=== PATIENT | male | born 1965 | race Caucasian/White ===

== ENCOUNTER 2017-04-08 08:57 | Emergency (ER) | payer MEDICAID ==
[~2017-04-08] VITALS: Ht 182.9 cm; Wt 147.4 kg
[~2017-04-08 08:57] MED LIST: AMLODIPINE10 MG PO; CARVEDILOL6.25 MG PO; GABAPENTIN100 M1 PO; LISINOPRIL40 MG PO; LORTAB 10/3251 TAB PO; ROPINIROLE HYDRO1 MG PO
--- NOTE | 2017-04-08 09:18 | Emergency Room Report ---
History of Present Illness Time Seen by MD [email or web address] Presenting Problem in Triage Pt arrived:Walked Presenting Problem:PT WAS CLEANING A BATHROOM WITH AN ACID SUBSTANCE TO GET IT CLEAN WHEN HE INCIDENTALLY INHALED THE FUMES; HE HAS A HX OF COPD AND SMOKES 1+ PPD AND FEELS SOA. 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 N Clinical Suspician of Infection? N Mental Status: 1 - Regular (Normal Baseline) Sepsis Risk:Low Sepsis Risk Have you (or family members/close friends) recently traveled outside the [place]? N If Yes, where/when: Have you had exposure to infectious disease within the past month? TB? Other? Specify: Patient inhaled muriatic acid at work while cleaning bathroom. He had some initial SOB but none now. No vomiting. Stable and in NAD on arrival. He is a smoker with hx COPD, not steroid dependent, uses CPAP at night for sleep apnea. ALLERGIES Coded Allergies: No Known Allergies (04/08/17) Home Medications Reported Medications Gabapentin (Gabapentin 100MG) 100 MG PO TID Carvedilol (Carvedilol 6.25MG) 6.25 MG PO BID Lisinopril (Lisinopril 40MG) 40 MG PO DAILY Amlodipine Besylate (Amlodipine) 10 MG PO DAILY ROPINIROLE HCL (Ropinirole 1MG) 2 MG PO QHS HYDROCODONE/ACETAMINOPHEN (Lortab 10-325 MG Tablet) 1 TAB PO QID History Medical History General CAD? No Angina: No CA: No Hypertension? Yes Hyperlipidemia? No CHF? No DVT? Yes PE? No COPD? No Asthma? No Anemia? No GERD? No Gastric ulcers? No GI Bleed? No Hernia? No Thyroid Problems? No Hypothyroidism? No CVA? No Seizures? No Diabetes? No Renal Insuffiency? No End Stage Renal Disease? No UTI? No Stones? No BPH? No GB Disease: No Nephritic Syndrome? No Asplenia? No Hepatitis? No Arthritis? Yes Migraines? No Cataracts? No Glaucoma? No MRSA? No HIV? No TB? No Anxiety? No Depression? No Cancer? No More? Yes Additional hx: RHEUMATIOD ARTHRITIS Immunization Hx Ped.Immunizations UTD Yes DT/Tetanus 1-4 Years Ago Surgical Hx Previous Surgery?Y LEFT KNEE X2 HERNIA REPAIR X2 Social History Smoking Hx Smoker: Current Every Day Smoker Tobacco: Yes Type Cigarettes Packs/day < 1 Pack Alcohol Alcohol: No Review of Systems All Other Systems Reviewed and Negative Physical Exam Vital Signs Vital Signs Date Time Temp Pulse Resp B/P Pulse O2 O2 Flow FiO2 Ox Delivery Rate 04/08 09 98.4 72 18 169/107 96 General Appearance normal appearance, WD/WN, no apparent distress Eye Exam - bilateral eye normal exam, bilateral eye PERRL, bilateral eye EOMI Ear, Nose, Throat hearing grossly normal (lips pink; no watts to nares) Neck normal inspection, non-tender, supple, full range of motion Respiratory Status Yes: trachea midline, chest symmetrical, non tender chest. No: respiratory distress, tender on palpation, use of accessory muscles, pain on inspiration, pain on expiration, productive cough, non productive cough. Lung Sounds bilateral: normal breath sounds, lungs clear. Cardiovascular normal exam, regular rate/rhythm, no peripheral edema, no gallop, no JVD, no murmur, no rub, normal peripheral pulses Gastrointestinal normal bowel sounds, normal exam, non tender, soft, no organomegaly, no pulsatile mass, no guarding, no rebound Extremities non-tender, normal range of motion, no pedal edema Strength 5 Upper Ext (L), 5 Upper Ext (R), 5 Lower Ext (L), 5 Lower Ext (R) Neurologic alert, normal exam, no motor/sensory deficits, oriented x 3 Glascow Coma Scale Glascow Coma Scale Response Value EYE response: 4 Spontaneously 4 MOTOR response: 6 OBEYS 6 VERBAL response: 5 Oriented & Converses 5 Total 15 Skin intact, normal color, warm/dry Medical Decision Making LABS/Meds/Orders Pt receiving controlled substance in ED? No Results/Orders Orders Procedure Date/time Status CHEST(2 VIEWS-NOT PORTABLE) 04/08 09 Active Consult MD Physician Consult Time Called 0935 Reason Other (Poison control consultation) Progress ED Progress Notes Date 04/08/17 Time 0943 Comment Per poison control, ok to discharge now as stable one hour s/p exposure. Pt exam unchanged at d/c. Departure Departure Time of Disposition 0944 Disposition DC Home or Self Care(routine) Clinical Impression Primary Impression: Exposure to chemical inhalation Condition STABLE Referrals JENNIFER BEAN (Family) Patient Instructions DI for Inhalation Injury Additional Instructions See Dr. Bean for follow up if needed; wear mask at work; take Ventolin scheduled at home every six hours while awake over the next 12-24 hours. Discharge Counseling Counseled pt/family regarding diagnosis, test results, medications/RX, home care, follow up needs ED Critical Care Critical Care No at 0946
--- OUTSIDE RECORDS SUMMARY | 2017-04-08 09:34 | External Medical Summary Rpt ---
Author Author JAELYN [facility] Organization [facility] Address Unknown Phone Unavailable Care Team Providers Care Sports Trainer Name Role Phone DENNIS BEAN PCP [phone] Encounter JAELYN RAYA [id number] Date(s): 06/25/16 - 06/25/16 [facility] [address] [place] [address]- [phone] Discharge Disposition: OP Self Care or Home Attending Physician: CAMILLE ENGLISH MD-ORT Admitting Physician: CAMILLE ENGLISH MD-ORT Referring Physician: CAMILLE ENGLISH MD-ORSelma Reason for Visit PAIN IN RIGHT KNEE Vital Signs No data available for this section Problem List Condition Effective Status Health Informant Dates Status Left leg Active DVT(Confirme d) Hypertension Active (Confirmed) Allergies, Adverse Reactions, Alerts No Known Allergies Medications No data available for this section Results No data available for this section Immunizations No data available for this section Procedures No data available for this section Social History Social History Response Type Smoking Status Current every day smoker Assessment and Plan No data available for this section Hospital Discharge Instructions No data available for this section
--- OUTSIDE RECORDS SUMMARY | 2017-04-08 09:34 | External Medical Summary Rpt ---
Author Author [facility] Organization [facility] Address Unknown Phone Unavailable Care Team Providers Care Microfabrication Engineer Manager Name Role Phone VIKAS DENNIS PCP [phone] Encounter [facility] Date(s): 01/06/17 - 01/07/17 [facility] [address] [place] [address]- Discharge Disposition: OP Self Care or Home Attending Physician: IRON MANCINI MD-CAR Admitting Physician: IRON MANCINI MD-CAR Referring Physician: BRYANT LICEA MD-INT Reason for Visit ABNORMAL RESULT OF OTHER CARDIOVASCULAR FUNCTION STUDY Vital Signs Most recent 1 2 3 to oldest [Reference Range]: Temperature Temporal artery Source scanning (01/07/17 9:32 AM) Temperature Fahrenheit Mode (01/07/17 9:32 AM) Temperature, 97.7 Deg F Fahrenheit (01/07/17 9:32 AM) [96.8-99.7 Deg F] Clinical 36.5 Deg C Temperature, (01/07/17 9:32 AM) C Peripheral 63 bpm Pulse Rate (01/07/17 9:32 AM) [60-100 bpm] Heart Rate 70 bpm 64 bpm 62 bpm Monitored (01/07/17 1:30 PM) (01/07/17 1:15 PM) (01/07/17 1:00 PM) [60-100 bpm] Respiratory 16 Breaths/Min 16 Breaths/Min 6 Breaths/Min Rate [14-20 (01/07/17 1:30 PM) (01/07/17 1:15 PM) *LOW* Breaths/Min] (01/07/17 1:00 PM) Blood 126/74 mmHg 126/74 mmHg 141/83 mmHg Pressure (01/07/17 1:30 PM) (01/07/17 1:15 PM) *HI* [90-140/60-9 (01/07/17 1:00 PM) 0 mmHg] Mean 91 mmHg 91 mmHg 102 mmHg Arterial (01/07/17 1:30 PM) (01/07/17 1:15 PM) (01/07/17 1:00 PM) Pressure (MAP) Mean 92 92 107 Arterial (01/07/17 1:30 PM) (01/07/17 1:15 PM) (01/07/17 1:00 PM) Pressure (MAP)-BMDI Oxygen 96 % 97 % 94 % Saturation (01/07/17 1:30 PM) (01/07/17 1:15 PM) (01/07/17 1:00 PM) [94-100 %] Oxygen Room air Therapy Mode (01/07/17 9:32 AM) Height Stated Source (01/07/17 9:32 AM) Height Entry [place] Format (01/07/17 9:32 AM) Height/Lengt 6 ft h, [place] (01/07/17 9:32 AM) (ft) Height/Lengt 0 Inch h [place] (01/07/17 9:32 AM) CLINICALHEIG 182.88 cm HT (01/07/17 9:32 AM) Weight Standing scale Source (01/07/17 9:32 AM) Weight Entry [place] Format (01/07/17 9:32 AM) Weight 318 lb [place] lb (01/07/17 9:32 AM) CLINICALWEIG 144.55 kg HT (01/07/17 9:32 AM) Body Surface 2.6 m2 Area (BSA) (01/07/17 9:32 AM) Body Mass 43.2 kg/m2 Index *>HHI* [19.0-24.0 (01/07/17 9:32 AM) kg/m2] [place] Body 77 kg Weight (01/07/17 9:32 AM) Problem List Condition Effective Status Health Informant Dates Status Anxiety(Conf Active patient irmed) Left leg Active DVT(Confirme d) HTN(Confirme Active d) Hypertension Active (Confirmed) Apnea, Active patient sleep(Confir med) Restless Active patient leg(Confirme d) Allergies, Adverse Reactions, Alerts Substance Reaction Severity Status sulfa drugs Active Medications acetaminophen-hydrocodone ([place] 10 mg-325 mg oral tablet)1 Tab, Oral, Three Times A Day, Refills: 0 albuterol (Ventolin HFA 90 mcg/inh inhalation aerosol)2 Puff, Inhalation, Four Times A Day, As Needed, as needed for wheezing, Refills: 0 amLODIPine 5 mg, Oral, At Bedtime, Refills: 0 carvedilol 25 mg, Oral, Two Times A Day, Refills: 0 citalopram 40 mg, Oral, Every Day, Refills: 0 gabapentin 300 mg, Oral, Three Times A Day, Refills: 0 lisinopril (lisinopril 40 mg oral tablet) 1 Tab, Oral, Two Times A Day, Refills: 0 montelukast 10 mg, Oral, Every Day, Refills: 0 rOPINIRole Oral, 0.5 mg at noon and 4mg at bedtme, Refills: 0 Results GENERAL CHEMISTRY Most recent 1 to oldest [Reference Range]: eGFR 77 mL/min/1.73m2 [>=60 (01/07/17 9:25 AM) mL/min/1.73m 2] eGFR 63 mL/min/1.73m2 NonAfrican (01/07/17 9:25 AM) [>=60 mL/min/1.73m 2] Sodium POC 140 mmol/L [138-146 (01/07/17 9:25 AM) mmol/L] Potassium 4.1 mmol/L POC [3.5-4.9 (01/07/17 9:25 AM) mmol/L] Chloride POC 100 mmol/L [98-109 (01/07/17 9:25 AM) mmol/L] CO2 POC 28.0 mmol/L [24.0-29.0 (01/07/17 9:25 AM) mmol/L] Anion Gap 16.0 mmol/L POC (01/07/17 9:25 AM) [10.0-20.0 mmol/L] Glucose POC 103 mg/dL [70-105 (01/07/17 9:25 AM) mg/dL] BUN POC 26 mg/dL [8-26 mg/dL] (01/07/17 9:25 AM) Creatinine 1.2 mg/dL POC [0.6-1.3 (01/07/17 9:25 AM) mg/dL] Ca Ioniz POC 1.24 mmol/L [1.12-1.32 (01/07/17 9:25 AM) mmol/L] HEMATOLOGY Most recent 1 to oldest [Reference Range]: Platelet 108 K/uL Count *LOW* [163-369 (01/07/17 9:18 AM) K/uL] Hematocrit 42.0 % POC (01/07/17 9:25 AM) [38.0-51.0 %] Hemoglobin 14.3 Gram/dL POC (01/07/17 9:25 AM) [12.0-17.0 Gram/dL] Immunizations No data available for this section Procedures Procedure Date Related Body Site Diagnosis cardiac cathterization without pci Social History Social History Response Type Smoking Status Current every day smoker; Smoking Frequency Within Last 30 Days Five or more cigarettes per day; Years of Tobacco Use 35; Packs/Tins Daily .5 Assessment and Plan No data available for this section Hospital Discharge Instructions Patient EducationAngiogram, Care After Conscious Sedation, Adult, Care After Heart-Healthy Eating Plan, [id number] Radial Site Care Wound Infection, [id number]
--- OUTSIDE RECORDS SUMMARY | 2017-04-08 09:34 | External Medical Summary Rpt ---
Author Author [facility] Organization [facility] Address Unknown Phone Unavailable Care Team Providers Care Panel Wirer Name Role Phone VIKAS DENNIS PCP [phone] Encounter [facility] Date(s): 01/06/17 - 01/07/17 [facility] [address] [place] [address]- Discharge Disposition: OP Self Care or Home [...] Stated Source (01/07/17 9:32 AM) Height Entry [place] Format (01/07/17 9:32 AM) Height/Lengt 6 ft h, [place] (01/07/17 9:32 AM) (ft) Height/Lengt 0 Inch h [place] (01/07/17 9:32 AM) CLINICALHEIG 182.88 cm HT (01/07/17 9:32 AM) Weight Standing scale Source (01/07/17 9:32 AM) Weight Entry [place] Format (01/07/17 9:32 AM) Weight [address] [place] lb (01/07/17 9:32 AM) CLINICALWEIG 144.55 kg HT (01/07/17 9:32 AM) Body Surface 2.6 m2 Area (BSA) (01/07/17 9:32 AM) Body Mass 43.2 kg/m2 Index *>HHI* [19.0-24.0 (01/07/17 9:32 AM) kg/m2] [place] Body 77 kg Weight (01/07/17 9:32 AM) Problem List Condition Effective Status Health Informant Dates Status Anxiety(Conf Active patient irmed) Left leg Active DVT(Confirme d) HTN(Confirme Active d) Hypertension Active (Confirmed) Apnea, Active patient sleep(Confir med) Restless Active patient leg(Confirme d) Allergies, Adverse Reactions, Alerts Substance Reaction Severity Status sulfa drugs Active Medications acetaminophen-hydrocodone ([place] 10 mg-325 mg oral tablet)1 Tab, Oral, [...] Sedation, Adult, Care After Heart-Healthy Eating Plan, [id number] Radial Site Care Wound Infection, [id number]
--- OUTSIDE RECORDS SUMMARY | 2017-04-08 09:34 | External Medical Summary Rpt ---
Author Author JAELYN [facility] Organization [facility] Address Unknown Phone Unavailable Care Team Providers Care Cardiac Care Unit Nurse Name Role Phone DENNIS BEAN PCP [phone] Encounter JAELYN RAYA [id number] Date(s): 06/25/16 - 06/25/16 [facility] [address] [place] [address]- [phone] Discharge Disposition: OP Self Care or Home [...]
--- OUTSIDE RECORDS SUMMARY | 2017-04-08 09:38 | External Medical Summary Rpt | CCD ---
Author Author , CHANDA Organization CHANDA Address Unknown Phone [email or web address] Providers Care Painter Plate Name Role Phone ANIVAL CARDONA MD, PSC, Unavailable Unavailable ANIVAL CARDONA MD, PSC [facility] Unavailable Unavailable [facility]PITAL, [facility], Unavailable Unavailable [facility] LICEA, LICEA Unavailable Unavailable [facility] Unavailable Unavailable MEDICAL G, [facility] [employer], Unavailable Unavailable LLC, [employer] [employer] MARTHA LICEA MD Unavailable Unavailable CONSULTING SRV, MARTHA LICEA MD CONSULTING SRV [facility] Unavailable Unavailable [facility], [facility]ANS [facility] Unavailable Unavailable EMERGENCY PHYS, [facility], Unavailable Unavailable [facility] [employer] [facility] Unavailable Unavailable [facility], [facility] [facility] ADDIS, ADDIS Unavailable Unavailable Purpose Continuity of Care Document - 04-17-2015 through 2016 Problems Code Diagnosis DOS Provider Status R06.02 SHORTNESS 01-07-2017 OF BREATH R07.9 CHEST PAIN, 01-07-2017 UNSPECIFIED I10 ESSENTIAL 01-07-2017 [facility] HYPERTENSIO MEDICAL G N I209 ANGINA 01-07-2017 [facility] UNSPECIFIED MEDICAL G J449 CHRONIC 01-07-2017 [facility] OBSTRUCTIVE HEALTH PULMONARY MEDICAL G DISEASE UNS R0789 OTHER CHEST 01-07-2017 [facility] MEDICAL G R9439 ABNORMAL 01-07-2017 [facility] CARDIOVASCU MEDICAL LR FUNCTION STUDY Z720 TOBACCO USE 01-07-2017 [facility] MEDICAL G R0602 SHORTNESS 2017 [facility] [place] OF BREATH RADIOLOGY R079 CHEST PAIN 2017 [facility] [place] UNSPECIFIED RADIOLOGY G4733 OBSTRUCTIVE 12-30-2016 MARTHA LICEA SLEEP APNEA ADULT CONSULTING PEDIATRIC SRV I158 OTHER 12-30-2016 MARTHA ROSARIO MD HYPERTENSIO CONSULTING N SRV [id number] ASHD TRIBAL 12-30-2016 MARTHA LICEA COR ART MD W/OTH FORMS CONSULTING ANGINA SRV [place] Z8249 FAMILY HX 12-30-2016 MARTHA LICEA ISCHEMIC MD HRT DZ OTH CONSULTING DZ CIRC SRV SYSTEM R07.2 PRECORDIAL 12-29-2016 PAIN R002 PALPITATION 12-28-2016 MARTHA LICEA S CONSULTING SRV R072 PRECORDIAL 12-28-2016 MARTHA LICEA PAIN MD CONSULTING SRV F17.210 NICOTINE 11-29-2016 DEPENDENCE, CIGARETTES, UNCOMPLICAT ED I10 ESSENTIAL 11-29-2016 (PRIMARY) HYPERTENSIO N S61.240A PUNCTURE 11-29-2016 WOUND WITH FOREIGN BODY OF RIGHT INDEX FINGER WITHOUT DAMAGE TO NAIL, INITIAL ENCOUNTER X58.XXXA EXPOSURE TO 11-29-2016 OTHER SPECIFIED FACTORS, INITIAL ENCOUNTER Y93.89 ACTIVITY, 11-29-2016 OTHER SPECIFIED Z88.2 ALLERGY 11-29-2016 STATUS TO SULFONAMIDE S STATUS [id number] PUNCTURE 11-28-2016 [facility] W/FB RT N EMERGENCY INDEX PHYS FINGER NO DAMGE NAIL INIT [id number] OTH 11-28-2016 [facility] FB/OBJECT N EMERGENCY ENTERING PHYS THRU SKIN INITIAL ENC Y51397 PAIN IN 10-21-2016 [facility] LEFT KNEE [facility] R251 TREMOR 10-21-2016 [facility] UNSPECIFIED [facility] R79.89 OTHER 10-11-2016 SPECIFIED ABNORMAL FINDINGS OF BLOOD CHEMISTRY R91.8 OTHER 10-11-2016 NONSPECIFIC ABNORMAL FINDING OF LUNG FIELD Z86.718 PERSONAL 10-11-2016 HISTORY OF OTHER VENOUS THROMBOSIS AND EMBOLISM R918 OTHER 10-08-2016 [facility] [place] NONSPECIFIC [facility] ABNORMAL FINDING OF LUNG FIELD M1711 UNILATERAL 09-10-2016 [facility] OSTEOARTHRI MEDICAL G TIS RIGHT KNEE M1712 UNILATERAL 09-10-2016 [facility] OSTEOARTHRI MEDICAL G TIS LEFT KNEE R05 COUGH 08-18-2016 [facility] J209 ACUTE 07-21-2016 [facility] BRONCHITIS FAMILY UNSPECIFIED [facility] [id number] PAIN IN 06-25-2016 [facility] RIGHT KNEE EAST R937 ABN FIND ON 06-25-2016 [facility] DX IMAG EAST OTH PART MUSCULOSKEL ETAL SYS H5213 MYOPIA 06-22-2016 [facility] C44231 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 [facility] ASTIGMATISM [facility] OF RIGHT EYE [facility] H524 PRESBYOPIA 06-22-2016 [facility] M53784 PAIN IN 06-21-2016 MARTHA LICEA RIGHT LEG CONSULTING SRV R32121 PAIN IN 06-21-2016 MARTHA VINAYAK LEFT LEG CONSULTING SRV G8929 OTHER 06-18-2016 [facility] PAIN R600 LOCALIZED 06-18-2016 [facility] EDEMA [facility] G2581 RESTLESS 05-20-2016 [place] LEGS [facility]ILY SYNDROME [facility] J0190 ACUTE 04-27-2016 [place] SINUSITIS FAMILY UNSPECIFIED [facility] R911 SOLITARY 04-12-2016 [facility] PULMONARY [facility] D489 NEOPLASM OF 03-05-2016 [place] UNCERTAIN FAMILY BEHAVIOR PHYSICIANS UNSPECIFIED [facility] M179 OSTEOARTHRI 01-13-2016 GAVIN LIMA OF KNEE MD, PSC UNSPECIFIED R221 LOCALIZED 12-05-2015 [place] SWELLING FAMILY MASS AND PHYSICIANS LUMP NECK [facility] H34665 ACUTE EMBO 10-20-2015 [facility] THROMB [facility] UNS LOW EXTREM G479 SLEEP 10-01-2015 [facility] DISORDER [facility] M2550 PAIN IN 09-12-2015 [facility] Z0000 ENCOUNTER 09-12-2015 [facility] ADULT [facility] W/O ABNORMAL FIND Z7901 PRISON 09-12-2015 [facility] CURRENT USE [facility] ANTICOAGULA NTS S41353 PHLEBITIS & 09-11-2015 [facility]ILY THROMBOPHLE [facility]ANS B OTH DEEP PLLC VES UNS EXT K219 GASTRO-ESOP 09-11-2015 [place] H REFLUX FAMILY DISEASE [facility] WITHOUT [facility] ESOPHAGITIS Z98338 PAIN IN 09-11-2015 [facility] UNSPECIFIED FAMILY ANKLE [facility] L55766 PAIN IN 08-29-2015 [facility] [place] LEFT ANKLE RADIOLOGY R279 UNSPECIFIED 08-20-2015 MARTHA LUNA OF COORDINATIO CONSULTING N SRV L918 OTHER 08-07-2015 [facility] HYPERTROPHI FAMILY C DISORDERS [facility] SKIN U14931 ACUTE EMBO 08-01-2015 [place] THROMB UNS FAMILY DEEP VEINS [facility]YSICIANS LT LOWER PLLC EXTREM Z5181 ENCOUNTER 08-01-2015 [facility]ITAL DRUG LEVEL MONITORING M1990 UNSPECIFIED 07-11-2015 [facility]PITAL TIS UNSPECIFIED SITE M7122 SYNOVIAL 07-11-2015 [place] [facility] SPACE DIEHL LEFT KNEE [id number] COMPLEX 07-11-2015 [place] [facility] MED [facility] CURR LT KNEE INIT ENC [id number] OTH TEAR 07-11-2015 [facility] [place] [facility] CURR INJ LT KNEE INIT ENC J9809 OTHER 05-14-2015 [place] DISEASES [facility] X98812 EFFUSION 04-17-2015 [facility] RIGHT KNEE N EMERGENCY PHYS W83310 EFFUSION 04-17-2015 [facility] LEFT KNEE N EMERGENCY PHYS Allergies, Adverse Reactions, Alerts Clinical Alert Notifications Alert Asthma: no influenza vaccine in the last 365 days Medications Na ND Rx Da Fi Fi Am Da Di Ph RX Ph St me C No te ll ll ou ys ag ar # ys at rm s nt no ma ic us Or Da si cy ia de te s n re d SY 00 10 12 10 30 00 RI Ac MB 18 -2 -0 .1 00 TE ti IC 60 5- 1- 99 00 ve OR 37 20 20 79 AI T 02 17 17 28 D 16 0 64 PH 0- AR 4. M 5 #3 MC 91 G 4 IN [facility] LE R RO 43 10 11 30 30 00 RI Ac PI 54 -1 -1 .0 00 TE ti NI 70 8- 0- 00 00 ve RO 26 20 20 78 AI LE 91 17 17 30 D 0 63 PH HC AR L M 0. #3 5 91 MG 4 TA BL ET CI 13 10 11 30 30 00 RI Ac TA 66 -0 -1 .0 00 TE ti LO 80 9- 0- 00 00 ve HI 01 20 20 77 AI AM 10 17 17 96 D 1 82 PH HB AR R M 40 #3 91 MG 4 TA BL ET HY 00 10 11 [address] 40 -1 -1 0. 00 TE ti OC 60 3- 0- 00 00 ve OD 12 20 20 0 80 AI ON 50 17 17 02 D -A 1 23 PH CE AR TA M MS #3 NO 91 PH 4 N 10 -3 25 LI 00 10 11 60 30 00 RI Ac SI 18 -0 -1 .0 00 TE ti NO 50 3- 0- 00 00 ve HI 64 20 20 78 AI IL 00 17 17 73 D 1 73 PH 40 AR M MG #3 91 TA 4 BL ET CA 68 10 11 60 30 00 RI Ac RV 38 -1 -1 .0 00 TE ti ED 20 0- 0- 00 00 ve IL 09 20 20 78 AI OL 40 17 17 20 D 1 49 PH 12 AR .5 M #3 MG 91 4 TA BL ET MO 65 10 11 30 30 00 RI Ac NT 86 -1 -1 .0 00 TE ti EL 20 0- 0- 00 00 ve UK 57 20 20 79 AI 49 17 17 92 D T 0 92 PH SO AR D M 10 #3 91 MG 4 TA BL ET AM 67 10 11 30 30 00 RI Ac LO 87 -1 -1 .0 00 TE ti DI 70 0- 0- 00 00 ve PI 19 20 20 79 AI NE 99 17 17 92 D 0 91 PH BE AR SY M LA #3 TE 91 4 10 MG TA B GA 69 10 11 90 30 00 RI Ac BA 09 -1 -1 .0 00 TE ti PE 70 1- 0- 00 00 ve NT 81 20 20 79 AI IN 41 17 17 95 D 2 83 PH 30 AR 0 M MG #3 91 CA 4 PS UL E VE 00 09 10 18 30 00 RI Ac NT 17 -1 -1 .0 00 TE ti OL 30 8- 3- 00 00 ve IN 68 20 20 79 AI 22 17 17 53 D HF 0 51 PH A AR 90 M #3 MC 91 G 4 IN [facility] LE R RO 43 09 10 30 30 00 RI Ac PI 54 -1 -1 .0 00 TE ti NI 70 8- 3- 00 00 ve RO 26 20 20 78 AI LE 91 17 17 30 D 0 63 PH HC AR L M 0. #3 5 91 MG 4 TA BL ET GA 69 09 10 90 30 00 RI Ac BA 09 -1 -0 .0 00 TE ti PE 70 3- 6- 00 00 ve NT 81 20 20 78 AI IN 41 17 17 16 D 2 49 PH 30 AR 0 M MG #3 91 CA 4 PS UL E SY 00 09 10 10 30 00 RI Ac MB 18 -1 -0 .1 00 TE ti IC 60 6- 6- 99 00 ve OR 37 20 20 79 AI T 02 17 17 28 D 16 0 64 PH 0- AR 4. M 5 #3 MC 91 G 4 IN [facility] LE R CA 68 09 10 60 30 00 RI Ac RV 38 -1 -0 .0 00 TE ti ED 20 3- 6- 00 00 ve IL 09 20 20 78 AI OL 40 17 17 20 D 1 49 PH 12 AR .5 M #3 MG 91 4 TA BL ET HY 00 09 10 [address] 40 -1 -0 0. 00 TE ti OC 60 5- 6- 00 00 ve OD 12 20 20 0 79 AI ON 50 17 17 50 D -A 1 62 PH CE AR TA M MS #3 NO 91 PH 4 N 10 -3 25 MO 65 09 10 30 30 00 RI Ac NT 86 -1 -0 .0 00 TE ti EL 20 0- 6- 00 00 ve UK 57 20 20 78 AI 49 17 17 37 D T 0 39 PH SO AR D M 10 #3 91 MG 4 TA BL ET AM 00 09 10 30 30 00 RI Ac LO 37 -1 -0 .0 00 TE ti DI 85 0- 6- 00 00 ve PI 21 20 20 78 AI NE 07 17 17 30 D 7 65 PH BE AR SY M LA #3 TE 91 4 10 MG TA B LI 00 09 09 60 30 00 RI Ac SI 18 -0 -2 .0 00 TE ti NO 50 4- 9- 00 00 ve HI 64 20 20 78 AI IL 00 17 17 73 D 1 73 PH 40 AR M MG #3 91 TA 4 BL ET RO 43 08 09 30 30 00 RI Ac PI 54 -2 -1 .0 00 TE ti NI 70 0- 5- 00 00 ve RO 26 20 20 78 AI LE 91 17 17 30 D 0 63 PH HC AR L M 0. #3 5 91 MG 4 TA BL ET FL 58 08 09 0. 1 00 RI Ac UA 16 -2 -1 50 00 TE ti RI 00 2- 5- 0 00 ve X 90 20 20 79 AI QU 75 17 17 06 D AD 2 27 PH AR 20 M 17 #3 -2 91 01 4 8 SY RI NG E HI 00 08 09 0. 1 00 RI Ac EV 00 -2 -1 50 00 TE ti NA 51 2- 5- 0 00 ve R 97 20 20 79 AI 13 10 17 17 06 D 2 30 PH SY AR RI M NG #3 E 91 4 VE 00 08 09 18 30 00 RI Ac NT 17 -1 -0 .0 00 TE ti OL 30 4- 8- 00 00 ve IN 68 20 20 78 AI 22 17 17 90 D HF 0 73 PH A AR 90 M #3 MC 91 G 4 IN [facility] LE R HY 00 08 09 [address] 40 -1 -0 0. 00 TE ti OC 60 7- 8- 00 00 ve OD 12 20 20 0 78 AI ON 50 17 17 98 D -A 1 71 PH CE AR TA M MS #3 NO 91 PH 4 N 10 -3 25 CA 68 08 09 60 30 00 RI Ac RV 38 -1 -0 .0 00 TE ti ED 20 6- 8- 00 00 ve IL 09 20 20 78 AI OL 40 17 17 03 D 1 66 PH 12 AR .5 M #3 MG 91 4 TA BL ET GA 69 08 09 90 30 00 RI Ac BA 09 -1 -0 .0 00 TE ti PE 70 2- 1- 00 00 ve NT 81 20 20 78 AI IN 41 17 17 16 D 2 49 PH 30 AR 0 M MG #3 91 CA 4 PS UL E CI 13 08 09 30 30 00 RI Ac TA 66 -1 -0 .0 00 TE ti LO 80 2- 1- 00 00 ve HI 01 20 20 77 AI AM 10 17 17 96 D 1 82 PH HB AR R M 40 #3 91 MG 4 TA BL ET AM 00 08 09 30 30 00 RI Ac LO 60 -0 -0 .0 00 TE ti DI 32 9- 1- 00 00 ve PI 11 20 20 78 AI NE 00 17 17 30 D 2 65 PH BE AR SY M LA #3 TE 91 4 10 MG TA B MO 65 08 09 30 30 00 RI Ac NT 86 -0 -0 .0 00 TE ti EL 20 9- 1- 00 00 ve UK 57 20 20 78 AI 49 17 17 37 D T 0 39 PH SO AR D M 10 #3 91 MG 4 TA BL ET CE 65 07 08 21 7 00 RI Ac PH 86 -3 -2 .0 00 TE ti AL 20 1- 5- 00 00 ve EX 01 20 20 78 AI IN 90 17 17 68 D 1 55 PH 50 AR 0 M MG #3 91 CA 4 PS UL E LI 00 08 08 60 30 00 RI Ac SI 18 -0 -2 .0 00 TE ti NO 50 3- 5- 00 00 ve HI 64 20 20 78 AI IL 00 17 17 73 D 1 73 PH 40 AR M MG #3 91 TA 4 BL ET CA 68 07 08 60 30 00 RI Ac RV 38 -1 -1 .0 00 TE ti ED 20 9- 8- 00 00 ve IL 09 20 20 78 AI OL 40 17 17 03 D 1 66 PH 12 AR .5 M #3 MG 91 4 TA BL ET RO 43 07 08 30 30 00 RI Ac PI 54 -2 -1 .0 00 TE ti NI 70 2- 8- 00 00 ve RO 26 20 20 77 AI LE 91 17 17 53 D 0 65 PH HC AR L M 0. #3 5 91 MG 4 TA BL ET IB 53 07 08 30 7 00 RI Ac UP 74 -2 -1 .0 00 TE ti RO 60 4- 8- 00 00 ve FE 46 20 20 78 AI N 50 17 17 40 D 60 1 19 PH 0 AR MG M #3 TA 91 BL 4 ET HY 00 07 08 12 [address] 40 -2 -1 0. 00 TE ti OC 60 0- 8- 00 00 ve OD 12 20 20 0 78 AI ON 50 17 17 50 D -A 1 26 PH CE AR TA M MS #3 NO 91 PH 4 N 10 -3 25 GA 69 07 08 90 30 00 RI Ac BA 09 -0 -0 .0 00 TE ti PE 70 9- 4- 00 00 ve NT 81 20 20 78 AI IN 41 17 17 16 D 2 49 PH 30 AR 0 M MG #3 91 CA 4 PS UL E AM 00 07 08 30 30 00 RI Ac LO 37 -1 -0 .0 00 TE ti DI 85 0- 4- 00 00 ve PI 21 20 20 78 AI NE 07 17 17 30 D 7 65 PH BE AR SY M LA #3 TE 91 4 10 MG TA B OX 13 07 08 20 5 00 RI Ac YC 10 -1 -0 .0 00 TE ti OD 70 4- 4- 00 00 ve ON 04 20 20 78 AI -A 50 17 17 40 D CE 1 15 PH TA AR MS M NO #3 PH 91 EN 4 7. 5- 32 5 LI 50 07 08 10 7 00 RI Ac DO 38 -1 -0 0. 00 TE ti CA 30 4- 4- 00 00 ve IN 77 20 20 0 78 AI E 50 17 17 40 D 2% 4 16 PH AR M SC #3 OU 91 S [address] ME 00 07 08 21 6 00 RI Ac TH 78 -1 -0 .0 00 TE ti YL 15 4- 4- 00 00 ve HI 02 20 20 78 AI ED 20 17 17 40 D NI 7 17 PH SO AR LO M NE #3 4 91 4 MG DO SE PK AM 00 07 08 21 7 00 RI Ac OX 78 -1 -0 .0 00 TE ti IC 12 4- 4- 00 00 ve IL 61 20 20 78 AI LI 30 17 17 40 D N 5 18 PH 50 AR 0 M MG #3 91 CA 4 PS UL E IB 53 07 08 30 7 00 RI Ac UP 74 -1 -0 .0 00 TE ti RO 60 4- 4- 00 00 ve FE 46 20 20 78 AI N 50 17 17 40 D 60 1 19 PH 0 AR MG M #3 TA 91 BL 4 ET HI 65 07 08 15 3 00 RI Ac OM 16 -1 -0 .0 00 TE ti ET 20 4- 4- 00 00 ve [facility] 52 20 20 78 AI ZI 11 17 17 40 D NE 0 20 PH AR 25 M #3 MG 91 4 TA BL ET MO 65 07 08 30 30 00 RI Ac NT 86 -1 -0 .0 00 TE ti EL 20 3- 4- 00 00 ve UK 57 20 20 78 AI 49 17 17 37 D T 0 39 PH SO AR D M 10 #3 91 MG 4 TA BL ET LI 00 07 07 60 30 00 RI Ac SI 18 -0 -2 .0 00 TE ti NO 50 3- 8- 00 00 ve HI 64 20 20 77 AI IL 00 17 17 29 D 1 51 PH 40 AR M MG #3 91 TA 4 BL ET VE 00 06 07 18 30 00 RI Ac NT 17 -3 -2 .0 00 TE ti OL 30 0- 1- 00 00 ve IN 68 20 20 78 AI 22 17 17 17 D HF 0 25 PH A AR 90 M #3 MC 91 G 4 IN [facility] LE R OM 00 06 07 30 30 00 RI Ac EP 78 -2 -2 .0 00 TE ti RA 12 9- 1- 00 00 ve ZO 79 20 20 78 AI LE 01 17 17 16 D [address] AR M 20 #3 91 MG 4 CA PS UL E CA 68 06 07 60 30 00 RI Ac RV 38 -2 -1 .0 00 TE ti ED 20 2- 4- 00 00 ve IL 09 20 20 78 AI OL 40 17 17 03 D 1 66 PH 12 AR .5 M #3 MG 91 4 TA BL ET RO 43 06 07 30 30 00 RI Ac PI 54 -2 -1 .0 00 TE ti NI 70 2- 4- 00 00 ve RO 26 20 20 77 AI LE 91 17 17 53 D 0 65 PH HC AR L M 0. #3 5 91 MG 4 TA BL ET SM 49 06 07 14 7 00 RI Ac 34 -2 -1 .0 00 TE ti NI 80 2- 4- 00 00 ve CO 14 20 20 78 AI TI 64 17 17 03 D NE 6 69 PH 7 AR M MG #3 /2 91 4H 4 R PA TC H HY 00 06 07 [address] 40 -2 -1 0. 00 TE ti OC 60 2- 4- 00 00 ve OD 12 20 20 0 78 AI ON 50 17 17 03 D -A 1 81 PH CE AR TA M MS #3 NO 91 PH 4 N 10 -3 25 TR 59 06 07 3. 3 00 RI Ac IA 76 -2 -1 00 00 TE ti ZO 23 2- 4- 0 00 ve LA 71 20 20 78 AI M 80 17 17 03 D 0. 4 82 PH 25 AR M MG #3 91 TA 4 BL ET CI 13 06 07 30 30 00 RI Ac TA 66 -1 -1 .0 00 TE ti LO 80 9- 4- 00 00 ve HI 01 20 20 77 AI AM 10 17 17 96 D 1 82 PH HB AR R M 40 #3 91 MG 4 TA BL ET SY 00 06 07 10 30 00 RI Ac MB 18 -2 -1 .1 00 TE ti IC 60 3- 4- 99 00 ve OR 37 20 20 76 AI T 02 17 17 97 D 16 0 80 PH 0- AR 4. M 5 #3 MC 91 G 4 IN [facility] LE R CA 68 06 07 60 30 00 RI Ac RV 38 -0 -0 .0 00 TE ti ED 20 5- 7- 00 00 ve IL 09 20 20 76 AI OL 30 17 17 79 D 1 08 PH 6. AR 25 M #3 MG 91 4 TA BL ET LI 00 06 07 60 30 00 RI Ac SI 18 -0 -0 .0 00 TE ti NO 50 5- 7- 00 00 ve HI 64 20 20 77 AI IL 00 17 17 29 D 1 51 PH 40 AR M MG #3 91 TA 4 BL ET RO 43 06 07 30 30 00 RI Ac PI 54 -1 -0 .0 00 TE ti NI 70 3- 7- 00 00 ve RO 27 20 20 76 AI LE 31 17 17 83 D 0 00 PH HC AR L M 4 #3 MG 91 4 TA BL ET AM 00 06 07 30 30 00 RI Ac LO 37 -1 -0 .0 00 TE ti DI 85 3- 7- 00 00 ve PI 21 20 20 76 AI NE 07 17 17 83 D 7 01 PH BE AR SY M LA #3 TE 91 4 10 MG TA B HI 59 06 07 30 4 00 RI Ac ED 74 -1 -0 .0 00 TE ti NI 60 3- 7- 00 00 ve SO 17 20 20 77 AI NE 30 17 17 88 D 6 71 PH 10 AR M MG #3 91 TA 4 BL ET GA 69 06 07 90 30 00 RI Ac BA 09 -0 -0 .0 00 TE ti PE 70 6- 7- 00 00 ve NT 81 20 20 76 AI IN 41 17 17 80 D 2 47 PH 30 AR 0 M MG #3 91 CA 4 PS UL E OX 13 06 06 90 30 00 RI Ac YC 10 -0 -2 .0 00 TE ti OD 70 1- 3- 00 00 ve ON 04 20 20 77 AI -A 50 17 17 68 D CE 1 15 PH TA AR MS M NO #3 PH 91 EN 4 7. 5- 32 5 RO 43 05 06 30 30 00 RI Ac PI 54 -2 -1 .0 00 TE ti NI 70 4- 6- 00 00 ve RO 26 20 20 77 AI LE 91 17 17 53 D 0 65 PH HC AR L M 0. #3 5 91 MG 4 TA BL ET SY 00 05 06 10 30 00 RI Ac MB 18 -2 -1 .1 00 TE ti IC 60 4- 6- 99 00 ve OR 37 20 20 76 AI T 02 17 17 97 D 16 0 80 PH 0- AR 4. M 5 #3 MC 91 G 4 IN [facility] LE R HY 00 05 06 [address] 40 -1 -0 0. 00 TE ti OC 60 9- 9- 00 00 ve OD 12 20 20 0 77 AI ON 50 17 17 48 D -A 1 03 PH CE AR TA M MS #3 NO 91 PH 4 N 10 -3 25 RO 43 05 06 30 30 00 RI Ac PI 54 -1 -0 .0 00 TE ti NI 70 4- 9- 00 00 ve RO 27 20 20 76 AI LE 31 17 17 83 D 0 00 PH HC AR L M 4 #3 MG 91 4 TA BL ET AM 00 05 06 30 30 00 RI Ac LO 37 -1 -0 .0 00 TE ti DI 85 4- 9- 00 00 ve PI 21 20 20 76 AI NE 07 17 17 83 D 7 01 PH BE AR SY M LA #3 TE 91 4 10 MG TA B LI 00 05 06 60 30 00 RI Ac SI 18 -0 -0 .0 00 TE ti NO 50 8- 2- 00 00 ve HI 64 20 20 77 AI IL 00 17 17 29 D 1 51 PH 40 AR M MG #3 91 TA 4 BL ET GA 69 05 06 90 30 00 RI Ac BA 09 -0 -0 .0 00 TE ti PE 70 8- 2- 00 00 ve NT 81 20 20 76 AI IN 41 17 17 80 D 2 47 PH 30 AR 0 M MG #3 91 CA 4 PS UL E VE 00 05 06 18 30 00 RI Ac NT 17 -0 -0 .0 00 TE ti OL 30 9- 2- 00 00 ve IN 68 20 20 77 AI 22 17 17 30 D HF 0 27 PH A AR 90 M #3 MC 91 G 4 IN [facility] LE R OM 00 05 06 30 30 00 RI Ac EP 78 -0 -0 .0 00 TE ti RA 12 9- 2- 00 00 ve ZO 79 20 20 77 AI LE 01 17 17 30 D [address] AR M 20 #3 91 MG 4 CA PS UL E CA 68 05 06 60 30 00 RI Ac RV 38 -0 -0 .0 00 TE ti ED 20 8- 2- 00 00 ve IL 09 20 20 76 AI OL 30 17 17 79 D 1 08 PH 6. AR 25 M #3 MG 91 4 TA BL ET CI 13 05 06 30 30 00 RI Ac TA 66 -1 -0 .0 00 TE ti LO 80 0- 2- 00 00 ve HI 01 20 20 77 AI AM 10 17 17 32 D 1 09 PH HB AR R M 40 #3 91 MG 4 TA BL ET SY 00 04 05 10 30 00 RI Ac MB 18 -1 -1 .1 00 TE ti IC 60 9- 9- 99 00 ve OR 37 20 20 76 AI T 02 17 17 97 D 16 0 80 PH 0- AR 4. M 5 #3 MC 91 G 4 IN [facility] LE R RO 43 04 05 30 30 00 RI Ac PI 54 -2 -1 .0 00 TE ti NI 70 5- 9- 00 00 ve RO 26 20 20 75 AI LE 91 17 17 94 D 0 88 PH HC AR L M 0. #3 5 91 MG 4 TA BL ET ES 65 04 05 30 30 00 RI Ac CI 86 -1 -1 .0 00 TE ti TA 20 9- 2- 00 00 ve LO 37 20 20 76 AI HI 50 17 17 97 D AM 1 79 PH AR 20 M #3 MG 91 4 TA BL ET BR 00 04 05 60 30 00 RI Ac EO 17 -1 -1 .0 00 TE ti 30 9- 2- 00 00 ve EL 88 20 20 76 AI LI 21 17 17 97 D PT 0 97 PH A AR 20 M 0- #3 25 91 4 MC G IN H HY 00 04 05 [address] 40 -1 -1 0. 00 TE ti OC 60 9- 2- 00 00 ve OD 12 20 20 0 76 AI ON 50 17 17 98 D -A 1 65 PH CE AR TA M MS #3 NO 91 PH 4 N 10 -3 25 RO 43 04 05 30 30 00 RI Ac PI 54 -1 -0 .0 00 TE ti NI 70 1- 5- 00 00 ve RO 27 20 20 76 AI LE 31 17 17 83 D 0 00 PH HC AR L M 4 #3 MG 91 4 TA BL ET AM 00 04 05 30 30 00 RI Ac LO 37 -1 -0 .0 00 TE ti DI 85 1- 5- 00 00 ve PI 21 20 20 76 AI NE 07 17 17 83 D 7 01 PH BE AR SY M LA #3 TE 91 4 10 MG TA B CA 68 04 05 60 30 00 RI Ac RV 38 -0 -0 .0 00 TE ti ED 20 8- 5- 00 00 ve IL 09 20 20 76 AI OL 30 17 17 79 D 1 08 PH 6. AR 25 M #3 MG 91 4 TA BL ET LI 00 04 05 60 30 00 RI Ac SI 18 -0 -0 .0 00 TE ti NO 50 9- 5- 00 00 ve HI 64 20 20 75 AI IL 00 17 17 62 D 1 71 PH 40 AR M MG #3 91 TA 4 BL ET DO 49 04 05 20 10 00 RI Ac XY 88 -0 -0 .0 00 TE ti CY 40 5- 5- 00 00 ve CL 72 20 20 76 AI IN 70 17 17 73 D E 3 26 PH MO AR NO M #3 10 91 0 4 MG CA P HY 10 04 05 30 [address] 70 -0 -0 .0 00 TE ti OX 20 5- 5- 00 00 ve YZ 01 20 20 76 AI IN 00 17 17 73 D E 1 27 PH HC AR L M 10 #3 91 MG 4 TA BL ET ES 65 04 05 30 30 00 RI Ac CI 86 -0 -0 .0 00 TE ti TA 20 5- 5- 00 00 ve LO 37 20 20 76 AI HI 40 17 17 73 D AM 1 28 PH AR 10 M #3 MG 91 4 TA BL ET BERRY 89 04 05 15 21 00 CV Ac PA 13 -0 -0 .0 00 S ti RT 04 5- 5- 00 08 CA ve Z 44 20 20 43 RE FX 40 17 17 46 MA 1 95 RK 25 MG /2 .5 ML SY R GA 69 04 05 90 30 00 RI Ac BA 09 -1 -0 .0 00 TE ti PE 70 0- 5- 00 00 ve NT 81 20 20 76 AI IN 41 17 17 80 D 2 47 PH 30 AR 0 M MG #3 91 CA 4 PS UL E RO 43 03 04 30 30 00 RI Ac PI 54 -2 -1 .0 00 TE ti NI 70 3- 4- 00 00 ve RO 26 20 20 75 AI LE 91 17 17 94 D 0 88 PH HC AR L M 0. #3 5 91 MG 4 TA BL ET CL 65 03 04 20 10 00 RI Ac AR 86 -2 -1 .0 00 TE ti IT 20 2- 4- 00 00 ve HR 22 20 20 76 AI OM 66 17 17 48 D YC 0 38 PH IN AR M 50 #3 0 91 MG 4 TA BL ET VE 00 03 04 18 30 00 RI Ac NT 17 -2 -1 .0 00 TE ti OL 30 2- 4- 00 00 ve IN 68 20 20 76 AI 22 17 17 48 D HF 0 39 PH A AR 90 M #3 MC 91 G 4 IN [facility] LE R HI 00 03 04 30 12 00 RI Ac ED 05 -2 -1 .0 00 TE ti NI 40 2- 4- 00 00 ve SO 01 20 20 76 AI NE 72 17 17 48 D 5 41 PH 10 AR M MG #3 91 TA 4 BL ET HY 00 03 04 [address] 40 -2 -1 0. 00 TE ti OC 60 2- 4- 00 00 ve OD 12 20 20 0 76 AI ON 50 17 17 48 D -A 1 50 PH CE AR TA M MS #3 NO 91 PH 4 N 10 -3 25 RO 43 03 04 30 30 00 RI Ac PI 54 -1 -0 .0 00 TE ti NI 70 6- 7- 00 00 ve RO 27 20 20 75 AI LE 31 17 17 35 D 0 14 PH HC AR L M 4 #3 MG 91 4 TA BL ET AM 00 03 04 30 30 00 RI Ac LO 37 -1 -0 .0 00 TE ti DI 85 6- 7- 00 00 ve PI 21 20 20 75 AI NE 07 17 17 35 D 7 15 PH BE AR SY M LA #3 TE 91 4 10 MG TA B CA 68 03 03 60 30 00 RI Ac RV 38 -0 -3 .0 00 TE ti ED 20 7- 1- 00 00 ve IL 09 20 20 75 AI OL 30 17 17 13 D 1 81 PH 6. AR 25 M #3 MG 91 4 TA BL ET LI 00 03 03 60 30 00 RI Ac SI 18 -0 -3 .0 00 TE ti NO 50 7- 1- 00 00 ve HI 64 20 20 75 AI IL 00 17 17 62 D 1 71 PH 40 AR M MG #3 91 TA 4 BL ET GA 69 03 03 90 30 00 RI Ac BA 09 -1 -3 .0 00 TE ti PE 70 1- 1- 00 00 ve NT 81 20 20 75 AI IN 41 17 17 13 D 2 77 PH 30 AR 0 M MG #3 91 CA 4 PS UL E OX 13 03 03 20 5 00 RI Ac YC 10 -0 -2 .0 00 TE ti OD 70 4- 4- 00 00 ve ON 04 20 20 76 AI -A 50 17 17 16 D CE 1 24 PH TA AR MS M NO #3 PH 91 EN 4 7. 5- 32 5 AM 00 03 03 21 5 00 RI Ac OX 78 -0 -2 .0 00 TE ti IC 12 4- 4- 00 00 ve IL 61 20 20 76 AI LI 30 17 17 16 D N 5 25 PH 50 AR 0 M MG #3 91 CA 4 PS UL E RO 43 02 03 30 30 00 RI Ac PI 54 -2 -1 .0 00 TE ti NI 70 1- 7- 00 00 ve RO 26 20 20 75 AI LE 91 17 17 94 D 0 88 PH HC AR L M 0. #3 5 91 MG 4 TA BL ET HY 00 02 03 [address] 40 -1 -1 0. 00 TE ti OC 60 7- 0- 00 00 ve OD 12 20 20 0 75 AI ON 50 17 17 89 D -A 1 09 PH CE AR TA M MS #3 NO 91 PH 4 N 10 -3 25 GA 69 02 03 90 30 00 RI Ac BA 09 -0 -1 .0 00 TE ti PE 70 7- 0- 00 00 ve NT 81 20 20 75 AI IN 41 17 17 13 D 2 77 PH 30 AR 0 M MG #3 91 CA 4 PS UL E CA 68 02 03 60 30 00 RI Ac RV 38 -0 -1 .0 00 TE ti ED 20 5- 0- 00 00 ve IL 09 20 20 75 AI OL 30 17 17 13 D 1 81 PH 6. AR 25 M #3 MG 91 4 TA BL ET OM 00 02 03 30 30 00 RI Ac EP 78 -0 -1 .0 00 TE ti RA 12 6- 0- 00 00 ve ZO 79 20 20 75 AI LE 01 17 17 66 D [address] AR M 20 #3 91 MG 4 CA PS UL E RO 43 02 03 30 30 00 RI Ac PI 54 -1 -1 .0 00 TE ti NI 70 5- 0- 00 00 ve RO 27 20 20 75 AI LE 31 17 17 35 D 0 14 PH HC AR L M 4 #3 MG 91 4 TA BL ET AM 00 02 03 30 30 00 RI Ac LO 37 -1 -1 .0 00 TE ti DI 85 5- 0- 00 00 ve PI 21 20 20 75 AI NE 07 17 17 35 D 7 15 PH BE AR SY M LA #3 TE 91 4 10 MG TA B LI 00 02 02 60 30 00 RI Ac SI 18 -0 -2 .0 00 TE ti NO 50 4- 4- 00 00 ve HI 64 20 20 75 AI IL 00 17 17 62 D 1 71 PH 40 AR M MG #3 91 TA 4 BL ET AM 00 01 02 30 30 00 RI Ac LO 37 -1 -1 .0 00 TE ti DI 85 9- 7- 00 00 ve PI 21 20 20 75 AI NE 07 17 17 35 D 7 15 PH BE AR SY M LA #3 TE 91 4 10 MG TA B HY 00 01 02 12 [address] 40 -1 -1 0. 00 TE ti OC 60 9- 7- 00 00 ve OD 12 20 20 0 75 AI ON 50 17 17 35 D -A 1 21 PH CE AR TA M MS #3 NO 91 PH 4 N 10 -3 25 RO 43 01 02 30 30 00 RI Ac PI 54 -2 -1 .0 00 TE ti NI 70 1- 7- 00 00 ve RO 26 20 20 74 AI LE 91 17 17 25 D 0 62 PH HC AR L M 0. #3 5 91 MG 4 TA BL ET LI 00 01 02 60 30 00 RI Ac SI 18 -0 -0 .0 00 TE ti NO 50 9- 3- 00 00 ve HI 64 20 20 74 AI IL 00 17 17 08 D 1 31 PH 40 AR M MG #3 91 TA 4 BL ET VE 00 01 02 18 16 00 RI Ac NT 17 -0 -0 .0 00 TE ti OL 30 9- 3- 00 00 ve IN 68 20 20 75 AI 22 17 17 13 D HF 0 73 PH A AR 90 M #3 MC 91 G 4 IN PEARSON LE R GA 69 01 02 90 30 00 RI Ac BA 09 -0 -0 .0 00 TE ti PE 70 9- 3- 00 00 ve NT 81 20 20 75 AI IN 41 17 17 13 D 2 77 PH 30 AR 0 M MG #3 91 CA 4 PS UL E CA 68 01 02 60 30 00 RI Ac RV 38 -0 -0 .0 00 TE ti ED 20 9- 3- 00 00 ve IL 09 20 20 75 AI OL 30 17 17 13 D 1 81 PH 6. AR 25 M #3 MG 91 4 TA BL ET AM 00 12 01 30 10 00 RI Ac OX 78 -2 -2 .0 00 TE ti IC 12 7- 7- 00 00 ve IL 61 20 20 74 AI LI 30 16 17 89 D N 5 15 PH 50 AR 0 M MG #3 91 CA 4 PS UL E HI 59 12 01 30 12 00 RI Ac ED 74 -2 -2 .0 00 TE ti NI 60 7- 7- 00 00 ve SO 17 20 20 74 AI NE 30 16 17 89 D 6 17 PH 10 AR M MG #3 91 TA 4 BL ET HI 00 12 01 12 5 00 RI Ac OM 60 -2 -2 0. 00 TE ti ET 31 7- 7- 00 00 ve PEARSON 58 20 20 0 74 AI ZI 55 16 17 89 D NE 8 44 PH -C AR OD M EI #3 NE 91 4 SY RU P CL 65 01 01 20 10 00 RI Ac AR 86 -0 -2 .0 00 TE ti IT 20 4- 7- 00 00 ve HR 22 20 20 75 AI OM 66 17 17 06 D YC 0 20 PH IN AR M 50 #3 0 91 MG 4 TA BL ET OM 00 01 01 30 30 00 RI Ac EP 78 -0 -2 .0 00 TE ti RA 12 4- 7- 00 00 ve ZO 79 20 20 75 AI LE 01 17 17 04 D [address] AR M 20 #3 91 MG 4 CA PS UL E HY 00 01 01 60 [address] 40 -0 -2 .0 00 TE ti OC 60 4- 7- 00 00 ve OD 12 20 20 75 AI ON 50 17 17 06 D -A 1 40 PH CE AR TA M MS #3 NO 91 PH 4 N 10 -3 25 DE 00 01 01 26 16 00 RI Ac XA 05 -0 -2 .0 00 TE ti ME 44 4- 7- 00 00 ve TH 18 20 20 75 AI 02 17 17 06 D ON 5 43 PH E AR 0. M 75 #3 91 MG 4 TA BL ET GA 69 12 01 90 30 00 RI Ac BA 09 -1 -2 .0 00 TE ti PE 70 9- 0- 00 00 ve NT 81 20 20 73 AI IN 41 16 17 69 D 2 72 PH 30 AR 0 M MG #3 91 CA 4 PS UL E RO 43 12 01 30 30 00 RI Ac PI 54 -1 -2 .0 00 TE ti NI 70 9- 0- 00 00 ve RO 26 20 20 74 AI LE 91 16 17 25 D 0 62 PH HC AR L M 0. #3 5 91 MG 4 TA BL ET OM 00 12 01 30 30 00 RI Ac EP 78 -0 -1 .0 00 TE ti RA 12 9- 3- 00 00 ve ZO 79 20 20 74 AI LE 01 16 17 57 D [address] AR M 20 #3 91 MG 4 CA PS UL E CA 68 12 01 60 30 00 RI Ac RV 38 -1 -1 .0 00 TE ti ED 20 1- 3- 00 00 ve IL 09 20 20 73 AI OL 30 16 17 36 D 1 39 PH 6. AR 25 M #3 MG 91 4 TA BL ET AM 00 12 01 30 30 00 RI Ac LO 37 -1 -1 .0 00 TE ti DI 85 1- 3- 00 00 ve PI 21 20 20 73 AI NE 07 16 17 56 D 7 33 PH BE AR SY M LA #3 TE 91 4 10 MG TA B LI 00 12 01 60 30 00 RI Ac SI 18 -1 -1 .0 00 TE ti NO 50 1- 3- 00 00 ve HI 64 20 20 74 AI IL 00 16 17 08 D 1 31 PH 40 AR M MG #3 91 TA 4 BL ET HI 59 12 01 30 12 00 RI Ac ED 74 -0 -0 .0 00 TE ti NI 60 1- 9- 00 00 ve SO 17 20 20 74 AI NE 30 16 17 41 D 6 90 PH 10 AR M MG #3 91 TA 4 BL ET AZ 50 12 01 6. 5 00 RI Ac IT 11 -0 -0 00 00 TE ti HR 10 6- 9- 0 00 ve OM 78 20 20 74 AI YC 76 16 17 48 D IN 6 97 PH AR 25 M 0 #3 MG 91 4 TA BL ET HI 00 12 01 12 12 00 RI Ac OM 60 -0 -0 0. 00 TE ti ET 31 6- 9- 00 00 ve PEARSON 58 20 20 0 74 AI ZI 55 16 17 49 D NE 8 04 PH -C AR OD M EI #3 NE 91 4 SY RU P Procedures Procedure DOS Code Location Performer [place] [address] [facility] ADDIS SAME 7 NE HEALTH PHYS/QHP MEDICAL INITIAL G 15 MINS 5/> YRS CATH PLMT 13002 [facility] ADDIS L HRT & 7 [facility] ARTS MEDICAL W/NJX & G ANGIO IMG S&I DUP-SCAN 56932 MARTHA LICEA LICEA ARTL SARTHAK 7 MD ABDL/PEL/ CONSULTIN SCROT&/RP G SRV R ORGN COM MYOCARDIA 73473 [facility] SPECT 7 [facility] STUDIES TECHNETIU A9500 [facility] TC-99M 7 [facility] DX PER STUDY DOSE CV STRS 99935 [facility] TST 7 [facility] H[facility]PITAL RX CONT ECG TRCG ONLY NONINVASI 21704 [facility] VE 7 [facility] OXIMETRY OVERNIGHT MONITOR Encounters Encounter Start End Date Code Location Performer Type Date HOSPITAL [address] [facility] [place] [facility] [place] [facility] [place] [facility] [place] [facility] [place] [facility] [place] [facility] [place] [facility] [place] [facility] [place] [facility] [place] [facility] [place] [facility] [place] [facility] 6 [facility] [place] [facility] [place] [facility] 6 [facility] [place] [facility] 6 [facility] [place] [facility] 6 6 [facility] [place] [facility] 6 6 [facility] [place] [facility] 6 [facility] [place] [facility] 6 6 [facility] [place] - 6 [facility]
--- OUTSIDE RECORDS SUMMARY | 2017-04-08 09:38 | External Medical Summary Rpt | CCD ---
Author Author , CHANDA Organization CHANDA Address Unknown Phone [email or web address] Providers Care Process Line Operator Name Role Phone ANIVAL CARDONA MD, PSC, Unavailable Unavailable ANIVAL CARDONA MD, PSC [facility] Unavailable Unavailable HOSPITAL, [facility], Unavailable Unavailable [facility] LICEA, LICEA Unavailable Unavailable [facility] Unavailable Unavailable MEDICAL G, [facility] G [facility], Unavailable Unavailable [facility], [facility] MARTHA LICEA MD Unavailable Unavailable CONSULTING SRV, MARTHA LICEA MD CONSULTING SRV [facility] Unavailable Unavailable [facility]ICIANS [facility], [facility] PHYSICIANS [facility] Unavailable Unavailable EMERGENCY PHYS, [facility], Unavailable Unavailable [facility] [employer] Unavailable Unavailable [facility], [employer] [facility] ADDIS, ADDIS Unavailable Unavailable Purpose Continuity of Care Document - 04-17-2015 through 2016 Problems Code Diagnosis DOS Provider Status R06.02 SHORTNESS 01-07-2017 OF BREATH R07.9 CHEST PAIN, 01-07-2017 UNSPECIFIED I10 ESSENTIAL 01-07-2017 [facility] HYPERTENSIO MEDICAL G N I209 ANGINA 01-07-2017 [facility] UNSPECIFIED MEDICAL G J449 CHRONIC 01-07-2017 [facility] OBSTRUCTIVE HEALTH PULMONARY MEDICAL G DISEASE UNS R0789 OTHER CHEST 01-07-2017 [facility] MEDICAL G R9439 ABNORMAL 01-07-2017 [facility] CARDIOVASCU MEDICAL LR FUNCTION STUDY Z720 TOBACCO USE 01-07-2017 [facility] MEDICAL G R0602 SHORTNESS 2017 [facility] [place] OF BREATH RADIOLOGY R079 CHEST PAIN 2017 [facility] [place] UNSPECIFIED RADIOLOGY G4733 OBSTRUCTIVE 12-30-2016 MARTHA LICEA SLEEP APNEA ADULT CONSULTING PEDIATRIC SRV I158 OTHER 12-30-2016 MARTHA ROSARIO MD HYPERTENSIO CONSULTING N SRV A47201 [facility] CHIGNIK L[place] 12-30-2016 MARTHA LICEA COR ART MD W/OTH [...] ALLERGY 11-29-2016 STATUS TO SULFONAMIDE S STATUS [id number] PUNCTURE 11-28-2016 [facility] W/FB RT N EMERGENCY INDEX PHYS FINGER NO DAMGE NAIL INIT D303OME OTH 11-28-2016 [facility] FB/OBJECT N EMERGENCY ENTERING PHYS THRU SKIN INITIAL ENC I34520 PAIN IN 10-21-2016 [facility] LEFT KNEE [facility] R251 TREMOR 10-21-2016 [facility] UNSPECIFIED [facility] R79.89 OTHER 10-11-2016 SPECIFIED ABNORMAL FINDINGS OF BLOOD CHEMISTRY R91.8 OTHER 10-11-2016 NONSPECIFIC ABNORMAL FINDING OF LUNG FIELD Z86.718 PERSONAL 10-11-2016 HISTORY OF OTHER VENOUS THROMBOSIS AND EMBOLISM R918 OTHER 10-08-2016 [facility] [place] NONSPECIFIC [facility] ABNORMAL FINDING OF LUNG FIELD M1711 UNILATERAL 09-10-2016 [facility] PRIMARY HEALTH OSTEOARTHRI MEDICAL G TIS RIGHT KNEE M1712 UNILATERAL 09-10-2016 [facility]ALTH OSTEOARTHRI MEDICAL G TIS LEFT KNEE R05 COUGH 08-18-2016 [facility] J209 ACUTE 07-21-2016 [facility] BRONCHITIS FAMILY UNSPECIFIED [facility] [id number] PAIN IN 06-25-2016 [facility] EAST R937 ABN FIND ON 06-25-2016 [facility] DX IMAG EAST OTH PART MUSCULOSKEL ETAL SYS H5213 MYOPIA 06-22-2016 [facility] BILATERAL [facility] D96034 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 [facility] ASTIGMATISM DOCTORS OF RIGHT EYE [facility] H524 PRESBYOPIA 06-22-2016 [facility] O66944 PAIN IN 06-21-2016 MARTHA LICEA RIGHT LEG CONSULTING SRV S21662 PAIN IN 06-21-2016 MARTHA VINAYAK LEFT LEG CONSULTING SRV G8929 OTHER 06-18-2016 [facility] PAIN R600 LOCALIZED 06-18-2016 [facility] EDEMA [facility] HOSPITAL G2581 RESTLESS 05-20-2016 [place] LEGS [facility] SYNDROME [facility] J0190 ACUTE 04-27-2016 [place] SINUSITIS FAMILY UNSPECIFIED [facility]YSICIANS [facility] R911 SOLITARY 04-12-2016 [facility] PULMONARY [facility] NODULE HOSPITAL D489 NEOPLASM OF 03-05-2016 [place] UNCERTAIN [facility] BEHAVIOR PHYSICIANS UNSPECIFIED [facility] M179 OSTEOARTHRI 01-13-2016 GAVIN LIMA OF KNEE MD, PSC UNSPECIFIED R221 LOCALIZED 12-05-2015 [place] SWELLING FAMILY MASS AND PHYSICIANS LUMP NECK [facility] T24396 ACUTE EMBO 10-20-2015 [facility] THROMB [facility] UNS LOW EXTREM G479 SLEEP 10-01-2015 [facility] DISORDER [facility] UNSPECIFIED HOSPITAL M2550 PAIN IN 09-12-2015 [facility] Z0000 ENCOUNTER 09-12-2015 [facility] ADULT [facility] MED EXAM HOSPITAL W/O ABNORMAL FIND Z7901 DETENTION 09-12-2015 [facility] CURRENT USE [facility] ANTICOAGULA NTS W97080 PHLEBITIS & 09-11-2015 [facility] THROMBOPHLE PHYSICIANS B OTH DEEP PLLC VES UNS EXT K219 GASTRO-ESOP 09-11-2015 [place] H REFLUX FAMILY DISEASE PHYSICIANS WITHOUT [facility] ESOPHAGITIS V19461 PAIN IN 09-11-2015 [facility] UNSPECIFIED FAMILY ANKLE PHYSICIANS [facility] J43294 PAIN IN 08-29-2015 [facility] [place] LEFT ANKLE RADIOLOGY R279 UNSPECIFIED 08-20-2015 MARTHA LUNA OF COORDINATIO CONSULTING N SRV L918 OTHER 08-07-2015 [facility] HYPERTROPHI FAMILY C DISORDERS [facility] OF THE [facility] SKIN F72852 ACUTE EMBO 08-01-2015 [place] THROMB UNS FAMILY DEEP VEINS PHYSICIANS LT LOWER PLLC EXTREM Z5181 ENCOUNTER 08-01-2015 [facility] THERAPEUTIC HOSPITAL DRUG LEVEL MONITORING M1990 UNSPECIFIED 07-11-2015 [facility] HOSPITAL TIS UNSPECIFIED SITE M7122 SYNOVIAL 07-11-2015 [place] CYST [facility] POPLITEAL HOSPITAL SPACE DIEHL LEFT KNEE [id number] COMPLEX 07-11-2015 [place] TEAR MED [facility] CURR LT KNEE INIT ENC R37665A OTH TEAR 07-11-2015 [facility] [place] [facility] M[facility]ISC[facility] CURR INJ LT KNEE INIT ENC J9809 OTHER 05-14-2015 [place] DISEASES OF [facility] BRONCHUS PHYSICIANS [facility] PLLC D03193 EFFUSION 04-17-2015 [facility] RIGHT KNEE N EMERGENCY PHYS Y07403 EFFUSION 04-17-2015 [facility] LEFT KNEE N EMERGENCY [...] LO 80 9- 0- 00 00 ve [place] 01 20 20 77 AI AM 10 [...] 1 23 PH CE AR TA M AK #3 NO 91 PH 4 N 10 -3 25 LI 00 10 11 60 30 00 RI Ac SI 18 -0 -1 .0 00 TE ti NO 50 3- 0- 00 00 ve OH 64 20 20 78 AI IL 00 [...] 1 62 PH CE AR TA M AK #3 NO 91 PH 4 N 10 [...] NO 50 4- 9- 00 00 ve OH 64 20 20 78 AI IL 00 [...] 01 4 8 SY RI NG E OH 00 08 09 0. 1 00 RI [...] 1 71 PH CE AR TA M AK #3 NO 91 PH 4 N 10 [...] LO 80 2- 1- 00 00 ve OH 01 20 20 77 AI AM 10 [...] NO 50 3- 5- 00 00 ve OH 64 20 20 78 AI IL 00 [...] 1 26 PH CE AR TA M AK #3 NO 91 PH 4 N 10 [...] D CE 1 15 PH TA AR AK M NO #3 PH 91 EN 4 [...] YL 15 4- 4- 00 00 ve OH 02 20 20 78 AI ED 20 [...] M #3 TA 91 BL 4 ET OH 65 07 08 15 3 00 RI [...] NO 50 3- 8- 00 00 ve OH 64 20 20 77 AI IL 00 [...] 1 81 PH CE AR TA M AK #3 NO 91 PH 4 N 10 [...] LO 80 9- 4- 00 00 ve OH 01 20 20 77 AI AM 10 [...] NO 50 5- 7- 00 00 ve OH 64 20 20 77 AI IL 00 [...] TE 91 4 10 MG TA B OH 59 06 07 30 4 00 RI [...] D CE 1 15 PH TA AR AK M NO #3 PH 91 EN 4 [...] 1 03 PH CE AR TA M AK #3 NO 91 PH 4 N 10 [...] NO 50 8- 2- 00 00 ve OH 64 20 20 77 AI IL 00 [...] LO 80 0- 2- 00 00 ve OH 01 20 20 77 AI AM 10 [...] ve LO 37 20 20 76 AI OH 50 17 17 97 D AM 1 [...] 1 65 PH CE AR TA M AK #3 NO 91 PH 4 N 10 [...] NO 50 9- 5- 00 00 ve OH 64 20 20 75 AI IL 00 [...] ve LO 37 20 20 76 AI OH 40 17 17 73 D AM 1 [...] 91 G 4 IN PEARSON LE R OH 00 03 04 30 12 00 RI [...] 1 50 PH CE AR TA M AK #3 NO 91 PH 4 N 10 [...] NO 50 7- 1- 00 00 ve OH 64 20 20 75 AI IL 00 [...] D CE 1 24 PH TA AR AK M NO #3 PH 91 EN 4 [...] 1 09 PH CE AR TA M AK #3 NO 91 PH 4 N 10 [...] NO 50 4- 4- 00 00 ve OH 64 20 20 75 AI IL 00 [...] 1 21 PH CE AR TA M AK #3 NO 91 PH 4 N 10 [...] NO 50 9- 3- 00 00 ve OH 64 20 20 74 AI IL 00 [...] #3 91 CA 4 PS UL E OH 59 12 01 30 12 00 RI Ac ED 74 -2 -2 .0 00 TE ti NI 60 7- 7- 00 00 ve SO 17 20 20 74 AI NE 30 16 17 89 D 6 17 PH 10 AR M MG #3 91 TA 4 BL ET OH 00 12 01 12 5 00 RI [...] 1 40 PH CE AR TA M AK #3 NO 91 PH 4 N 10 [...] NO 50 1- 3- 00 00 ve OH 64 20 20 74 AI IL 00 16 17 08 D 1 31 PH 40 AR M MG #3 91 TA 4 BL ET OH 59 12 01 30 12 00 RI [...] #3 MG 91 4 TA BL ET OH 00 12 01 12 12 00 RI Ac OM 60 -0 -0 0. 00 TE ti ET 31 6- 9- 00 00 ve PEARSON 58 20 20 0 74 AI ZI 55 16 17 49 D NE 8 04 PH -C AR OD M EI #3 NE 91 4 SY RU P Procedures Procedure DOS Code Location Performer Comment MOD SED 36766 [facility] ADDIS SAME 7 NE HEALTH PHYS/QHP MEDICAL INITIAL G 15 MINS 5/> YRS CATH PLMT 02435 [facility] ADDIS L HRT & 7 NE HEALTH ARTS MEDICAL W/NJX & G ANGIO IMG S&I DUP-SCAN 21909 MARTHA LICEA LICEA ARTL SARTHAK 7 MD ABDL/PEL/ CONSULTIN SCROT&/RP G SRV R ORGN COM MYOCARDIA 56069 [facility] SPECT 7 [facility] STUDIES TECHNETIU A9500 [facility] TC-99M 7 [facility] DX PER [facility]UDY DOSE CV STRS 74737 [facility] TST 7 [facility] HOSPITAL RX CONT ECG TRCG [facility]INVASI 15396 [facility] VE 7 [facility] OXIMETRY OVERNIGHT MONITOR Encounters Encounter Start End Date Code Location Performer Type Date HOSPITAL [address] [facility] [place] - 7 7 [facility] [place] [facility] 7 7 [facility] [place] [facility] 6 6 [facility] [place] [facility] 6 [facility] [place] [facility] 6 6 [facility] [place] [facility] 6 6 [facility] [place] [facility] 6 [facility] [place] [facility] 6 [facility] [place] [facility] 6 [facility] [place] [facility] 6 [facility] [place] [facility] 6 6 [facility] [place] [facility] 6 [facility] [place] [facility] 6 [facility] [place] [facility] 6 6 [facility] [place] [facility] 6 [facility] [place] [facility] [place] [facility] [place] [facility] [place] [facility] 6 [facility] [place] [facility]
--- OUTSIDE RECORDS SUMMARY | 2017-04-08 09:43 | External Medical Summary Rpt | CCD ---
Author Author , CHANDA Organization CHANDA Address Unknown Phone [email or web address] Care Team Providers Care Theatre Instructor Name Role Phone ANIVAL CARDONA MD, PSC, Unavailable Unavailable ANIVAL CARDONA MD, PSC [facility] Unavailable Unavailable HOSPITAL, [facility], Unavailable Unavailable [facility] LICEA, LICEA Unavailable Unavailable [facility] Unavailable Unavailable MEDICAL G, [facility]ICAL G Satarii, Unavailable Unavailable LLC, Satarii, [facility] MARTHA LICEA MD Unavailable Unavailable CONSULTING SRV, MARTHA LICEA MD CONSULTING SRV [facility] Unavailable Unavailable PHYSICIANS [facility], [facility] PHYSICIANS [facility] Unavailable Unavailable EMERGENCY PHYS, [facility]YS [facility], Unavailable Unavailable [facility] [employer] [facility] Unavailable Unavailable OF [facility], Bro[facility] ADDIS, ADDIS Unavailable Unavailable Purpose Continuity of Care Document - 04-17-2015 through 2016 Problems Code Diagnosis DOS Provider Status I10 ESSENTIAL 01-07-2017 [facility] HYPERTENSIO MEDICAL G N I209 ANGINA 01-07-2017 [facility] HEALTH UNSPECIFIED MEDICAL G J449 CHRONIC 01-07-[address] [facility] OBSTRUCTIVE HEALTH PULMONARY MEDICAL G DISEASE UNS R0789 OTHER CHEST 01-07-2017 [facility] MEDICAL G R9439 ABNORMAL 01-07-2017 [facility] CARDIOVASCU MEDICAL G LR FUNCTION STUDY Z720 TOBACCO USE 01-07-2017 [facility] MEDICAL G R0602 SHORTNESS 2017 [facility] [place] OF BREATH [facility] R079 CHEST PAIN 2017 [facility] [place] UNSPECIFIED RADIOLOGY G4733 OBSTRUCTIVE 12-30-2016 MARTHA LICEA SLEEP APNEA ADULT CONSULTING PEDIATRIC SRV I158 OTHER 12-30-2016 MARTHA LICEA SECONDARY HYPERTENSIO CONSULTING N SRV A20872 ASHD [place] 12-30-2016 MARTHA LICEA COR ART W/OTH FORMS CONSULTING ANGINA SRV PECTORIS Z8249 FAMILY HX 12-30-2016 MARTHA LICEA ISCHEMIC HRT DZ OTH CONSULTING DZ CIRC SRV SYSTEM R002 PALPITATION 12-28-2016 MARTHA LICEA S CONSULTING SRV R072 PRECORDIAL 12-28-2016 MARTHA LICEA PAIN CONSULTING SRV [id number] PUNCTURE 11-28-2016 [facility] W/FB RT N EMERGENCY INDEX PHYS FINGER NO DAMGE NAIL INIT [id number] OTH 11-28-2016 [facility] FB/OBJECT N EMERGENCY ENTERING PHYS THRU SKIN INITIAL ENC C35155 PAIN IN 10-21-2016 [facility] LEFT KNEE FAMILY PHYSICIANS PLL R251 TREMOR 10-21-2016 [facility] UNSPECIFIED FAMILY PHYSICIANS PLL R918 OTHER 10-08-2016 [facility] [place] NONSPECIFIC [facility] ABNORMAL FINDING OF LUNG FIELD M1711 UNILATERAL 09-10-2016 [facility] OSTEOARTHRI MEDICAL G TIS RIGHT KNEE M1712 UNILATERAL 09-10-2016 [facility] OSTEOARTHRI MEDICAL G TIS LEFT KNEE R05 COUGH 08-18-2016 [facility] PLL J209 ACUTE 07-21-2016 [facility] BRONCHITIS FAMILY UNSPECIFIED PHYSICIANS PLL Y35128 PAIN IN 06-25-2016 [facility] RIGHT KNEE EAST R937 ABN FIND ON 06-25-2016 [facility] DX IMAG EAST OTH PART MUSCULOSKEL ETAL SYS H5213 MYOPIA 06-22-2016 [facility] BILATERAL DOCTORS OF [facility] R65023 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 [facility] ASTIGMATISM DOCTORS OF RIGHT EYE [facility] H524 PRESBYOPIA 06-22-2016 [facility] DOCT[facility] O81567 PAIN IN 06-21-2016 MARTHA LICEA RIGHT LEG CONSULTING SRV N48263 PAIN IN 06-21-2016 MARTHA LICEA LEFT LEG CONSULTING SRV G8929 OTHER 06-18-2016 [facility] PAIN R600 LOCALIZED 06-18-2016 [facility] G2581 RESTLESS 05-20-2016 [facility] LEGS FAMILY SYNDROME PHYSICIANS [facility] J0190 ACUTE 04-27-2016 [facility] SINUSITIS FAMILY UNSPECIFIED PHYSICIANS [facility] R911 SOLITARY 04-12-2016 [facility] PULMONARY [facility] D489 NEOPLASM OF 03-05-2016 [facility] UNSPECIFIED [facility] M179 OSTEOARTHRI 01-13-2016 ANIVAL BUX, TIS OF KNEE MD, PSC UNSPECIFIED R221 LOCALIZED 12-05-2015 [facility] SWELLING FAMILY MASS AND PHYSICIANS LUMP NECK PLL C14562 ACUTE EMBO 10-20-2015 [place] [facility]B [facility] UNS LOW EXTREM G479 SLEEP 10-01-2015 [facility]OSP[facility] M2550 PAIN IN 09-12-2015 [facility] UNSPECIFIED [facility] Z0000 ENCOUNTER 09-12-2015 [facility] ADULT [facility] MED EXAM HOSPITAL W/O ABNORMAL FIND 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-12-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 [facility] CURRENT USE [facility] ANTICOAGULA NTS T84073 PHLEBITIS & 09-11-2015 [facility] FAMILY THROMBOPHLE PHYSICIANS B OTH DEEP PLL VES UNS EXT K219 GASTRO-ESOP 09-11-2015 [facility] H REFLUX FAMILY DISEASE PHYSICIANS WITHOUT PLL ESOPHAGITIS W05258 PAIN IN 09-11-2015 [facility] UNSPECIFIED FAMILY ANKLE PHYSICIANS PLL T52655 PAIN IN 08-29-2015 [facility] [place] LEFT ANKLE RADIOLOGY R279 UNSPECIFIED 08-20-2015 MARTHA LUNA OF COORDINATIO CONSULTING N SRV L918 OTHER 08-07-2015 [facility] HYPERTROPHI FAMILY C DISORDERS [facility] THE [facility] SKIN K03793 ACUTE EMBO 08-01-2015 [facility] THROMB UNS FAMILY DEEP VEINS PHYSICIANS LT LOWER [facility] EXTREM Z5181 ENCOUNTER 08-01-2015 [facility] THERAPEUTIC [facility] DRUG LEVEL MONITORING M1990 UNSPECIFIED 07-11-2015 [facility] O[facility] HOSPITAL TIS UNSPECIFIED SITE M7122 SYNOVIAL 07-11-2015 [facility] CYST [facility] SPACE DIEHL LEFT KNEE [id number] COMPLEX 07-11-2015 [facility] TEAR [facility] CURR LT KNEE INIT ENC [id number] OTH TEAR 07-11-2015 [facility] CURR INJ LT KNEE INIT ENC J9809 OTHER 05-14-2015 [facility] DISEASES OF FAMILY BRONCHUS PHYSICIANS NEC [facility] S43911 EFFUSION 04-17-2015 [facility] RIGHT KNEE N EMERGENCY PHYS A77765 EFFUSION 04-17-2015 [facility] LEFT KNEE N EMERGENCY PHYS Medications Na ND Rx Da Fi Fi [...] 91 G 4 IN [facility] LE R LI 00 10 11 60 30 00 RI Ac SI 18 -0 -1 .0 00 TE ti NO 50 3- 0- 00 00 ve NJ 64 20 20 78 AI [place] 00 17 17 73 D 1 73 PH 40 AR M MG #3 91 TA 4 BL ET RO 43 10 11 30 30 00 [...] LO 80 9- 0- 00 00 ve NJ 01 20 20 77 AI AM 10 17 17 96 D 1 82 PH HB AR R M 40 #3 91 MG 4 TA BL ET CA 68 10 11 60 [...] #3 91 CA 4 PS UL E HY 00 10 11 [address] 40 -1 -1 0. 00 TE ti OC 60 3- 0- 00 00 ve OD 12 20 20 0 80 AI ON 50 17 17 02 D -A 1 23 PH CE AR TA M RI #3 NO 91 PH 4 N 10 -3 25 RO 43 09 10 30 30 00 RI Ac PI 54 -1 -1 .0 00 TE ti NI 70 8- 3- 00 00 ve RO 26 20 20 78 AI LE 91 17 17 30 D 0 63 PH HC AR L M 0. #3 5 91 MG 4 TA BL ET VE 00 09 10 18 30 00 RI Ac NT 17 -1 -1 .0 00 TE ti OL 30 8- 3- 00 00 ve IN 68 20 20 79 AI 22 17 17 53 D HF 0 51 PH A AR 90 M #3 MC 91 G 4 IN [facility] LE R MO 65 09 10 30 30 00 [...] 4 10 MG TA B CA 68 09 10 60 30 00 RI Ac RV 38 -1 -0 .0 00 TE ti ED 20 3- 6- 00 00 ve IL 09 20 20 78 AI OL 40 17 17 20 D 1 49 PH 12 AR .5 M #3 MG 91 4 TA BL ET GA 69 09 10 90 30 00 RI Ac BA 09 -1 -0 .0 00 TE ti PE 70 3- 6- 00 00 ve NT 81 20 20 78 AI IN 41 17 17 16 D 2 49 PH 30 AR 0 M MG #3 91 CA 4 PS UL E HY 00 09 10 [address] 40 -1 -0 0. 00 TE ti OC 60 5- 6- 00 00 ve OD 12 20 20 0 79 AI ON 50 17 17 50 D -A 1 62 PH CE AR TA M RI #3 NO 91 PH 4 N 10 -3 25 SY 00 09 10 10 30 00 RI Ac MB 18 -1 -0 .1 00 TE ti IC 60 6- 6- 99 00 ve OR 37 20 20 79 AI T 02 17 17 28 D 16 0 64 PH 0- AR 4. M 5 #3 MC 91 G 4 IN [facility] LE R LI 00 09 09 60 30 00 RI Ac SI 18 -0 -2 .0 00 TE ti NO 50 4- 9- 00 00 ve NJ 64 20 20 78 AI IL 00 [...] 01 4 8 SY RI NG E NJ 00 08 09 0. 1 00 RI [...] 1 71 PH CE AR TA M RI #3 NO 91 PH 4 N 10 -3 25 CA 68 08 09 60 30 00 RI Ac RV 38 -1 -0 .0 00 TE ti ED 20 6- 8- 00 00 ve IL 09 20 20 78 AI OL 40 17 17 03 D 1 66 PH 12 AR .5 M #3 MG 91 4 TA BL ET AM 00 08 [...] MG 4 TA BL ET GA 69 08 [...] LO 80 2- 1- 00 00 ve NJ 01 20 20 77 AI AM 10 [...] NO 50 3- 5- 00 00 ve NJ 64 20 20 78 AI IL 00 [...] 91 4 TA BL ET HY 00 07 08 [address] 40 -2 -1 0. 00 TE ti OC 60 0- 8- 00 00 ve OD 12 20 20 0 78 AI ON 50 17 17 50 D -A 1 26 PH CE AR TA M RI #3 NO 91 PH 4 N 10 -3 25 RO 43 07 08 30 30 00 [...] M #3 TA 91 BL 4 ET GA 69 07 08 90 30 00 [...] 4 10 MG TA B MO 65 07 08 30 30 00 RI Ac NT 86 -1 -0 .0 00 TE ti EL 20 3- 4- 00 00 ve [place] 57 20 20 78 AI 49 17 17 37 D T 0 39 PH SO AR D M 10 #3 91 MG 4 TA BL ET OX 13 07 08 20 5 00 RI Ac YC 10 -1 -0 .0 00 TE ti OD 70 4- 4- 00 00 ve ON 04 20 20 78 AI -A 50 17 17 40 D CE 1 15 PH TA AR RI M NO #3 PH 91 EN 4 [...] YL 15 4- 4- 00 00 ve NJ 02 20 20 78 AI ED 20 [...] M #3 TA 91 BL 4 ET NJ 65 07 08 15 3 00 RI Ac OM 16 -1 -0 .0 00 TE ti ET 20 4- 4- 00 00 ve [place] 52 20 20 78 AI ZI 11 17 17 40 D NE 0 20 PH AR 25 M #3 MG 91 4 TA BL ET LI 00 07 07 60 30 00 RI Ac SI 18 -0 -2 .0 00 TE ti NO 50 3- 8- 00 00 ve NJ 64 20 20 77 AI IL 00 17 17 29 D 1 51 PH 40 AR M MG #3 91 TA 4 BL ET OM 00 06 07 30 30 00 RI Ac EP 78 -2 -2 .0 00 TE ti RA 12 9- 1- 00 00 ve ZO 79 20 20 78 AI LE 01 17 17 16 D [address] AR M 20 #3 91 MG 4 CA PS UL E VE 00 06 07 18 30 00 RI Ac NT 17 -3 -2 .0 00 TE ti OL 30 0- 1- 00 00 ve IN 68 20 20 78 AI 22 17 17 17 D HF 0 25 PH A AR 90 M #3 MC 91 G 4 IN [place] LE R CI 13 06 07 30 30 00 RI Ac TA 66 -1 -1 .0 00 TE ti LO 80 9- 4- 00 00 ve NJ 01 20 20 77 AI AM 10 17 17 96 D 1 82 PH HB AR R M 40 #3 91 MG 4 TA BL ET CA 68 06 07 60 30 00 [...] 1 81 PH CE AR TA M RI #3 NO 91 PH 4 N 10 -3 25 TR 59 06 07 3. 3 00 RI Ac IA 76 -2 -1 00 00 TE ti ZO 23 2- 4- 0 00 ve LA 71 20 20 78 AI M 80 17 17 03 D 0. 4 82 PH 25 AR M MG #3 91 TA 4 BL ET SY 00 06 07 10 [...] NO 50 5- 7- 00 00 ve NJ 64 20 20 77 AI IL 00 [...] CA 4 PS UL E RO 43 06 07 30 30 00 [...] TE 91 4 10 MG TA B NJ 59 06 07 30 4 00 RI Ac ED 74 -1 -0 .0 00 TE ti NI 60 3- 7- 00 00 ve SO 17 20 20 77 AI NE 30 17 17 88 D 6 71 PH 10 AR M MG #3 91 TA 4 BL ET OX 13 06 06 90 30 00 RI Ac YC 10 -0 -2 .0 00 TE ti OD 70 1- 3- 00 00 ve ON 04 20 20 77 AI -A 50 17 17 68 D CE 1 15 PH TA AR RI M NO #3 PH 91 EN 4 [...] 4 IN [facility] LE R RO 43 05 06 30 30 00 [...] 4 10 MG TA B HY 00 05 06 [address] 40 -1 -0 0. 00 TE ti OC 60 9- 9- 00 00 ve OD 12 20 20 0 77 AI ON 50 17 17 48 D -A 1 03 PH CE AR TA M RI #3 NO 91 PH 4 N 10 -3 25 CA 68 05 06 60 30 00 RI Ac RV 38 -0 -0 .0 00 TE ti ED 20 8- 2- 00 00 ve IL 09 20 20 76 AI OL 30 17 17 79 D 1 08 PH 6. AR 25 M #3 MG 91 4 TA BL ET LI 00 05 06 60 30 00 RI Ac SI 18 -0 -0 .0 00 TE ti NO 50 8- 2- 00 00 ve NJ 64 20 20 77 AI IL 00 [...] 91 MG 4 CA PS UL E CI 13 05 06 30 30 00 RI Ac TA 66 -1 -0 .0 00 TE ti LO 80 0- 2- 00 00 ve NJ 01 20 20 77 AI AM 10 [...] ve LO 37 20 20 76 AI NJ 50 17 17 97 D AM 1 [...] 1 65 PH CE AR TA M RI #3 NO 91 PH 4 N 10 -3 25 CA 68 04 05 60 30 00 [...] NO 50 9- 5- 00 00 ve NJ 64 20 20 75 AI IL 00 17 17 62 D 1 71 PH 40 AR M MG #3 91 TA 4 BL ET RO 43 04 05 30 30 00 [...] TE 91 4 10 MG TA B DO 49 04 05 20 10 00 [...] ve LO 37 20 20 76 AI NJ 40 17 17 73 D AM 1 [...] #3 91 CA 4 PS UL E CL 65 03 04 20 10 00 [...] 91 G 4 IN [place] LE R NJ 00 03 04 30 12 00 RI [...] 1 50 PH CE AR TA M RI #3 NO 91 PH 4 N 10 -3 25 RO 43 03 04 30 30 00 RI Ac PI 54 -2 -1 .0 00 TE ti NI 70 3- 4- 00 00 ve RO 26 20 20 75 AI LE 91 17 17 94 D 0 88 PH HC AR L M 0. #3 5 91 MG 4 TA BL ET RO 43 03 04 30 30 00 [...] NO 50 7- 1- 00 00 ve NJ 64 20 20 75 AI IL 00 [...] D CE 1 24 PH TA AR RI M NO #3 PH 91 EN 4 [...] 5 91 MG 4 TA BL ET CA 68 02 03 60 30 00 [...] 4 CA PS UL E HY 00 02 03 [address] 40 -1 -1 0. 00 TE ti OC 60 7- 0- 00 00 ve OD 12 20 20 0 75 AI ON 50 17 17 89 D -A 1 09 PH CE AR TA M RI #3 NO 91 PH 4 N 10 [...] NO 50 4- 4- 00 00 ve NJ 64 20 20 75 AI IL 00 17 17 62 D 1 71 PH 40 AR M MG #3 91 TA 4 BL ET RO 43 01 02 30 30 00 RI Ac PI 54 -1 -1 .0 00 TE ti NI 70 9- 7- 00 00 ve RO 27 20 20 75 AI LE 31 17 17 35 D 0 14 PH HC AR L M 4 #3 MG 91 4 TA BL ET AM 00 01 02 30 [...] 1 21 PH CE AR TA M RI #3 NO 91 PH 4 N 10 -3 25 LI 00 01 02 60 30 00 RI Ac SI 18 -0 -0 .0 00 TE ti NO 50 9- 3- 00 00 ve NJ 64 20 20 74 AI IL 00 [...] #3 MG 91 4 TA BL ET CL 65 01 01 20 10 00 [...] 1 40 PH CE AR TA M RI #3 NO 91 PH 4 N 10 -3 25 DE 00 01 01 26 16 00 RI Ac XA 05 -0 -2 .0 00 TE ti ME 44 4- 7- 00 00 ve TH 18 20 20 75 AI 02 17 17 06 D ON 5 43 PH E AR 0. M 75 #3 91 MG 4 TA BL ET AM 00 12 01 30 10 00 RI Ac OX 78 -2 -2 .0 00 TE ti IC 12 7- 7- 00 00 ve IL 61 20 20 74 AI LI 30 16 17 89 D N 5 15 PH 50 AR 0 M MG #3 91 CA 4 PS UL E NJ 59 12 01 30 12 00 RI Ac ED 74 -2 -2 .0 00 TE ti NI 60 7- 7- 00 00 ve SO 17 20 20 74 AI NE 30 16 17 89 D 6 17 PH 10 AR M MG #3 91 TA 4 BL ET NJ 00 12 01 12 5 00 RI Ac OM 60 -2 -2 0. 00 TE ti ET 31 7- 7- 00 00 ve [place] 58 20 20 0 74 AI ZI 55 16 17 89 D NE 8 44 PH -C AR OD M EI #3 NE 91 4 SY RU P RO 43 12 01 30 30 00 [...] #3 91 CA 4 PS UL E OM 00 12 01 30 30 00 [...] NO 50 1- 3- 00 00 ve NJ 64 20 20 74 AI IL 00 16 17 08 D 1 31 PH 40 AR M MG #3 91 TA 4 BL ET NJ 59 12 01 30 12 00 RI [...] #3 MG 91 4 TA BL ET NJ 00 12 01 12 12 00 RI Ac OM 60 -0 -0 0. 00 TE ti ET 31 6- 9- 00 00 ve [place] 58 20 20 0 74 AI ZI 55 16 17 49 D NE 8 04 PH -C AR OD M EI #3 NE 91 4 SY RU P Procedures Procedure DOS Code Location Performer Comment MOD SED [address]89 [facility] ADDIS SAME 7 NE HEALTH PHYS/QHP MEDICAL INITIAL G 15 MINS 5/> YRS CATH PLMT 95709 [facility] ADDIS L HRT & 7 [facility] ARTS MEDICAL W/NJX & G ANGIO IMG S&I DUP-SCAN 89755 MARTHA LICEA LICEA ARTL SARTHAK 7 MD ABDL/PEL/ CONSULTIN SCROT&/RP G SRV R ORGN COM CV [facility]S 017[facility] RX CONT ECG TRCG ONLY TECHNETIU A9500 ASIA BETANCOURT M TC-99M 7 [facility] DX PER STUDY DOSE NONINVASI 02095 [facility] HOSPITAL OXIMETRY OVERNIGHT MONITOR MYOCARDIA 09391 [facility] SPECT 7 [facility] STUDIES Encounters Encounter Start End Date Code Location Performer Type Date [facility] [place] [address] [facility] [place] [address] 7 [facility] [place] [address] 7 [facility] [place] [address] [facility] [place] [address] [facility] [place] [address] 7 [facility] [place] [address] [address] [facility] [place] [address] [facility] [place] [address] [facility] 6 6 [facility] 6 6 [facility] 6 6 [facility] 6 6 [facility] 6 [facility] 6 6 [facility] 6 6 [facility] [place] - 6 6 [facility] - 6 6 [facility] - 6 6 [facility] - 6 6 [facility] - 6 6 [facility]
--- OUTSIDE RECORDS SUMMARY | 2017-04-08 09:43 | External Medical Summary Rpt | CCD ---
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 Name Role Phone ANIVAL CARDONA MD, PSC, Unavailable Unavailable ANIVAL CARDONA MD, PSC [facility] Unavailable Unavailable HOSPITAL, [facility], Unavailable Unavailable [facility] LICEA, LICEA Unavailable Unavailable [facility] Unavailable Unavailable MEDICAL G, [facility] MEDICAL G [facility], Unavailable Unavailable LLC, [facility], [facility] MARTHA LICEA MD Unavailable Unavailable CONSULTING SRV, MARTHA LICEA MD CONSULTING SRV [facility] Unavailable Unavailable PHYSICIANS [facility], [facility] PHYSICIANS [facility] Unavailable Unavailable EMERGENCY PHYS, [facility] EMERGENCY PHYS [facility], Unavailable Unavailable [facility] [employer] Unavailable Unavailable OF [employer], [employer] ADDIS, ADDIS Unavailable Unavailable Purpose Continuity of Care Document - 04-17-2015 through 2016 Problems Code Diagnosis DOS Provider Status I10 ESSENTIAL 01-07-2017 [facility] HYPERTENSIO MEDICAL G N I209 ANGINA 01-07-2017 [facility] HEALTH UNSPECIFIED MEDICAL G J449 CHRONIC 01-07-2017 [facility] OBSTRUCTIVE HEALTH PULMONARY MEDICAL G DISEASE UNS R0789 OTHER CHEST 01-07-2017 [facility] MEDICAL G R9439 ABNORMAL 01-07-2017 [facility] CARDIOVASCU MEDICAL G LR FUNCTION STUDY Z720 TOBACCO USE 01-07-2017 [facility] MEDICAL G R0602 SHORTNESS 2017 [facility] [place] OF BREATH RADIOLOGY R079 CHEST PAIN 2017 [facility] [place] UNSPECIFIED RADIOLOGY G4733 OBSTRUCTIVE 12-30-2016 MARTHA LICEA SLEEP [facility] ADULT CONSULTING PEDIATRIC SRV I158 OTHER 12-30-2016 MARTHA LICEA SECONDARY HYPERTENSIO CONSULTING N SRV K71933 [facility] [place] 12-30-2016 MARTHA LICEA COR ART W/OTH FORMS CONSULTING ANGINA SRV PECTORIS Z8249 FAMILY HX 12-30-2016 MARTHA LICEA ISCHEMIC HRT DZ OTH CONSULTING DZ CIRC SRV SYSTEM R002 PALPITATION 12-28-2016 MARTHA LICEA S CONSULTING SRV R072 PRECORDIAL 12-28-2016 MARTHA LICEA PAIN CONSULTING SRV Y43046M PUNCTURE 11-28-2016 [facility] W/FB RT N EMERGENCY INDEX PHYS FINGER NO DAMGE NAIL INIT G937LHN OTH 11-28-2016 [facility] FB/OBJECT N EMERGENCY ENTERING PHYS THRU SKIN INITIAL ENC D46828 PAIN IN 10-21-2016 [facility] LEFT KNEE FAMILY PHYSICIANS PLL R251 TREMOR 10-21-2016 [facility] UNSPECIFIED FAMILY PHYSICIANS PLL R918 OTHER 10-08-2016 [facility] [place] NONSPECIFIC [facility] ABNORMAL FINDING OF LUNG FIELD M1711 UNILATERAL 09-10-2016 [facility] OSTEOARTHRI MEDICAL G TIS RIGHT KNEE M1712 UNILATERAL 09-10-2016 [facility] OSTEOARTHRI MEDICAL G TIS LEFT KNEE R05 COUGH 08-18-2016 [facility] PLL J209 ACUTE 07-21-2016 [facility] BRONCHITIS FAMILY UNSPECIFIED PHYSICIANS PLL E64542 PAIN IN 06-25-2016 [facility] RIGHT KNEE EAST R937 ABN FIND ON 06-25-2016 [facility] DX IMAG EAST OTH PART MUSCULOSKEL ETAL SYS H5213 MYOPIA 06-22-2016 [employer] BILATERAL [facility] Y43349 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 [employer] ASTIGMATISM DOCTORS OF RIGHT EYE [facility] H524 PRESBYOPIA 06-22-2016 [employer] [facility] J67614 PAIN IN 06-21-2016 MARTHA LICEA RIGHT LEG CONSULTING SRV K50504 PAIN IN 06-21-2016 MARTHA LICEA LEFT LEG CONSULTING SRV G8929 OTHER 06-18-2016 [facility], [facility] PAIN R600 LOCALIZED 06-18-2016 [facility] G2581 RESTLESS 05-20-2016 [facility] LEGS FAMILY SYNDROME PHYSICIANS [facility] J0190 ACUTE 04-27-2016 [facility] SINUSITIS FAMILY UNSPECIFIED PHYSICIANS [facility] R911 SOLITARY 04-12-2016 [place] PUL[facility]ARY [facility] D489 NEOPLASM OF 03-05-2016 [facility] UNSPECIFIED [facility] M179 OSTEOARTHRI 01-13-2016 ANIVAL BUX, TIS OF KNEE MD, PSC UNSPECIFIED R221 LOCALIZED 12-05-2015 [facility] SWELLING FAMILY MASS AND PHYSICIANS LUMP NECK PLL Y33360 ACUTE EMBO 10-20-2015 [place] THROMB [facility] D[facility]OSPITAL UNS LOW EXTREM G479 SLEEP 10-01-2015 [facility] UNSPECIFIED HOSPITAL M2550 PAIN IN 09-12-2015 [facility] UNS[facility] Z0000 ENCOUNTER 09-12-2015 [facility] ADULT [facility] MED EXAM HOSPITAL W/O ABNORMAL FIND 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 [place]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 USE [facility] ANTICOAGULA NTS O08329 PHLEBITIS & 09-11-2015 [facility] FAMILY THROMBOPHLE PHYSICIANS B OTH DEEP PLL VES UNS EXT K219 GASTRO-ESOP 09-11-2015 [facility] H REFLUX FAMILY DISEASE PHYSICIANS WITHOUT PLL ESOPHAGITIS N49335 PAIN IN 09-11-2015 [facility] UNSPECIFIED FAMILY ANKLE PHYSICIANS PLL N45806 PAIN IN 08-29-2015 [facility] [place] LEFT ANKLE RADIOLOGY R279 UNSPECIFIED 08-20-2015 MARTHA LUNA OF COORDINATIO CONSULTING N SRV L918 OTHER 08-07-2015 [facility] HYPERTROPHI FAMILY C DISORDERS [facility] SKIN S25664 ACUTE EMBO 08-01-2015 [facility] THROMB UNS FAMILY [facility] PHYSICIANS LT LOWER [facility] EXTREM Z5181 ENCOUNTER 08-01-2015 [facility] THERAPEUTIC [facility] DRUG LEVEL MONITORING M1990 UNSPECIFIED 07-11-2015 [facility] O[facility] HOSPITAL TIS UNSPECIFIED SITE M7122 SYNOVIAL 07-11-2015 [place] CYST [facility] POPLITEAL HOSPITAL SPACE DIEHL LEFT KNEE J48378M COMPLEX 07-11-2015 [place] TEAR [facility] CURR LT KNEE INIT ENC L32902G OTH TEAR 07-11-2015 [facility] [place] [facility] CURR INJ LT KNEE INIT ENC J9809 OTHER 05-14-2015 [facility] DISEASES OF FAMILY BRONCHUS PHYSICIANS NEC [facility] N66852 EFFUSION 04-17-2015 [facility] RIGHT KNEE N EMERGENCY PHYS Y57001 EFFUSION 04-17-2015 [facility] LEFT KNEE N EMERGENCY [...] NO 50 3- 0- 00 00 ve MA 64 20 20 78 AI [place] 00 [...] LO 80 9- 0- 00 00 ve MA 01 20 20 77 AI AM 10 [...] 1 23 PH CE AR TA M AZ #3 NO 91 PH 4 N 10 [...] 1 62 PH CE AR TA M AZ #3 NO 91 PH 4 N 10 [...] NO 50 4- 9- 00 00 ve MA 64 20 20 78 AI [place] 00 [...] 01 4 8 SY RI NG E MA 00 08 09 0. 1 00 RI [...] 1 71 PH CE AR TA M AZ #3 NO 91 PH 4 N 10 [...] LO 80 2- 1- 00 00 ve MA 01 20 20 77 AI AM 10 [...] NO 50 3- 5- 00 00 ve MA 64 20 20 78 AI IL 00 [...] 1 26 PH CE AR TA M AZ #3 NO 91 PH 4 N 10 [...] D CE 1 15 PH TA AR AZ M NO #3 PH 91 EN 4 [...] YL 15 4- 4- 00 00 ve MA 02 20 20 78 AI ED 20 [...] M #3 TA 91 BL 4 ET MA 65 07 08 15 3 00 RI [...] NO 50 3- 8- 00 00 ve MA 64 20 20 77 AI IL 00 [...] LO 80 9- 4- 00 00 ve MA 01 20 20 77 AI AM 10 [...] 1 81 PH CE AR TA M AZ #3 NO 91 PH 4 N 10 [...] NO 50 5- 7- 00 00 ve MA 64 20 20 77 AI [place] 00 [...] TE 91 4 10 MG TA B MA 59 06 07 30 4 00 RI [...] D CE 1 15 PH TA AR AZ M NO #3 PH 91 EN 4 [...] 1 03 PH CE AR TA M AZ #3 NO 91 PH 4 N 10 [...] NO 50 8- 2- 00 00 ve MA 64 20 20 77 AI IL 00 [...] LO 80 0- 2- 00 00 ve MA 01 20 20 77 AI AM 10 [...] ve LO 37 20 20 76 AI MA 50 17 17 97 D AM 1 [...] 1 65 PH CE AR TA M AZ #3 NO 91 PH 4 N 10 [...] NO 50 9- 5- 00 00 ve MA 64 20 20 75 AI IL 00 [...] ve LO 37 20 20 76 AI MA 40 17 17 73 D AM 1 [...] 91 G 4 IN PEARSON LE R MA 00 03 04 30 12 00 RI [...] 1 50 PH CE AR TA M AZ #3 NO 91 PH 4 N 10 [...] NO 50 7- 1- 00 00 ve MA 64 20 20 75 AI IL 00 [...] D CE 1 24 PH TA AR AZ M NO #3 PH 91 EN 4 [...] 1 09 PH CE AR TA M AZ #3 NO 91 PH 4 N 10 [...] NO 50 4- 4- 00 00 ve MA 64 20 20 75 AI IL 00 [...] 1 21 PH CE AR TA M AZ #3 NO 91 PH 4 N 10 -3 25 LI 00 01 02 60 30 00 RI Ac SI 18 -0 -0 .0 00 TE ti NO 50 9- 3- 00 00 ve MA 64 20 20 74 AI IL 00 [...] 1 40 PH CE AR TA M AZ #3 NO 91 PH 4 N 10 [...] #3 91 CA 4 PS UL E MA 59 12 01 30 12 00 RI Ac ED 74 -2 -2 .0 00 TE ti NI 60 7- 7- 00 00 ve SO 17 20 20 74 AI NE 30 16 17 89 D 6 17 PH 10 AR M MG #3 91 TA 4 BL ET MA 00 12 01 12 5 00 RI [...] NO 50 1- 3- 00 00 ve MA 64 20 20 74 AI IL 00 16 17 08 D 1 31 PH 40 AR M MG #3 91 TA 4 BL ET MA 59 12 01 30 12 00 RI [...] #3 MG 91 4 TA BL ET MA 00 12 01 12 12 00 RI Ac OM 60 -0 -0 0. 00 TE ti ET 31 6- 9- 00 00 ve PEARSON 58 20 20 0 74 AI ZI 55 16 17 49 D NE 8 04 PH -C AR OD M EI #3 NE 91 4 SY RU P Procedures Procedure DOS Code Location Performer [place] [address] [facility] ADDIS SAME 7 NE HEALTH PHYS/QHP MEDICAL INITIAL G 15 MINS 5/> YRS CATH PLMT 28269 [facility] ADDIS L HRT & 7 [facility] ARTS MEDICAL W/NJX & G ANGIO IMG S&I DUP-SCAN 85559 MARTHA LICEA LICEA ARTL SARTHAK 7 MD ABDL/PEL/ CONSULTIN SCROT&/RP G SRV R ORGN COM CV STRS 60508 [facility] HOSPITAL RX CONT ECG TRCG ONLY TECHNETIU A9500 ASIA BETANCOURT M TC-99M 7 [facility] DX PER STUDY DOSE NONINVASI 44459 [facility] VE 7 [facility] H[facility]PITAL OXIMETRY OVERNIGHT MONITOR MYOCARDIA 74915 [facility] L SPECT 7 [facility] STUDIES Encounters Encounter Start End Date Code Location Performer Type Date [facility]OSPITAL [place] [address] [facility] [place] [address] [facility] [place] [address] [facility] [place] [address] [facility] [place] [address] [facility] [place] [address] [facility] [place] [address] [address] [facility] [place] [address] [facility] [place] [address] 6 [facility] [place] - 6 6 [facility] [place] - 6 6 [facility] [place] - 6 6 [facility] [place] - 6 6 [facility] [place] - 6 6 [facility] [place] - 6 6 [facility] [place] [facility] 6 [facility] [place] - 6 6 [facility] [place] - 6 6 [facility] [place] - 6 6 [facility] [place] - 6 6 [facility] [place] - [address] [facility]
--- OUTSIDE RECORDS SUMMARY | 2017-04-08 09:44 | External Medical Summary Rpt ---
Author Author CHANDA Ramos, [employer]DA [employer] Organization [employer] Address Unknown Phone Unavailable
--- OUTSIDE RECORDS SUMMARY | 2017-04-08 09:44 | External Medical Summary Rpt | CCD ---
Demographics Preferred Language Tanzanian Marital Status Unknown Gnosticism Affiliation Unknown Race Unknown Ethnic Group Unknown Author Author , FIONA ARMAS Address Unknown Phone Immunization No patient found.
--- OUTSIDE RECORDS SUMMARY | 2017-04-08 09:44 | External Medical Summary Rpt | CCD ---
Demographics Preferred Language [place] Citizen Marital Status Unknown Christian Affiliation Unknown Race Unknown Ethnic Group Unknown Author Author , FIONA ARMAS Address Unknown Phone Immunization No patient found.
[2017-04-08 09:47] VITALS: BP 169/107
--- NOTE | 2017-04-08 12:30 | RADIOLOGY REPORT PS360 ---
CHEST(2 VIEWS-NOT PORTABLE) HISTORY: INHALED FUMES,SOA ORDERING PHYSICIAN: Keshia Peres MD PATIENT AGE: 52 years COMPARISON: None available FINDINGS: The cardiomediastinal silhouette and pulmonary vascularity are within normal limits. There is mild coarsening of the bronchovascular markings/interstitium. No lobar consolidation or collapse. No effusions.. No acute bony abnormalities. IMPRESSION: Mild coarsening of the bronchovascular markings/interstitium. This is nonspecific and could be seen with bronchitis, COPD/smoking related lung disease, or even acute interstitial pneumonitis.
== END 2017-04-08 09:48 | disposition home or self-care (01) ==
LOC: ER 08:57
DX: T59.891A Toxic effect of other specified gases, fumes and vapors, accidental (unintentional), initial encounter (principal); R06.02 Shortness of breath; Y92.9 Unspecified place or not applicable; I10 Essential (primary) hypertension; J44.9 Chronic obstructive pulmonary disease, unspecified; F17.210 Nicotine dependence, cigarettes, uncomplicated; Z79.891 Long term (current) use of opiate analgesic; Z79.899 Other long term (current) drug therapy; Z86.718 Personal history of other venous thrombosis and embolism